=== PATIENT | female | born 1945 | race African-American/Black ===

== ENCOUNTER 2018-05-28 06:55 | Emergency (ER) | payer MEDICARE, SELFPAY ==
[2018-05-28 09:09] LABS: Bilirubin Small (Negative); Blood, Urine Negative (Negative); Clarity CLEAR (Clear); Glucose, Urine (Dipstick) Negative (Negative); Leukocyte Small (Negative); Nitrite Negative (Negative); Protein, Urine (Dipstick) Negative (Neg-Trace); Specific Gravity, Urine 1.029 (1.002-1.036)
[2018-05-28 09:11] LABS: Bacteria/HPF None Seen HPF (None Seen); Hyaline Casts/LPF 0-3 HYALINE CAST LPF (0-3 Hyaline); Pathc Cast-AUWi Flag 0.43 (0-2.49); RBC/HPF 0-3 HPF (0-3); WBC/HPF 0-3 HPF (0-3)
== END 2018-05-28 10:01 | disposition home or self-care (01) ==
LOC: ERS 06:55
DX: S39.012A Strain of muscle, fascia and tendon of lower back, initial encounter (principal); M54.41 Lumbago with sciatica, right side; E11.9 Type 2 diabetes mellitus without complications; I10 Essential (primary) hypertension; F17.210 Nicotine dependence, cigarettes, uncomplicated; E03.9 Hypothyroidism, unspecified; Z79.84 Long term (current) use of oral hypoglycemic drugs; Z79.899 Other long term (current) drug therapy; W19.XXXA Unspecified fall, initial encounter
CPT/HCPCS: 81003; 81015; 87086; 99283

== ENCOUNTER 2018-06-28 08:52 | Inpatient (IN) | payer MEDICARE, SELFPAY ==
[2018-06-28 10:23] LABS: ALT (SGPT) 27 U/L (8-55); AST (SGOT) 16 U/L (5-34); Alkaline Phosphatase 150 U/L (40-150); Anion Gap 18 mmol/L (10-20); BUN (Urea Nitrogen) 37 mg/dL (9.8-20.1); Bilirubin, Total 0.4 mg/dL (0.2-1.2); CK (CPK) 41 U/L (29-168); Calc. Creatinine Clearance 0 mL/min (70-130); Calcium 10.5 mg/dL (7.8-10.44); Carbon Dioxide 25 mmol/L (23-31); Chloride 101 mmol/L (98-107); Estimated GFR-MDRD 69; Globulin 3.5 g/dL (2.4-3.5); Glucose 105 mg/dL (83-110); Lipase 6 U/L (8-78); Potassium 3.3 mmol/L (3.5-5.1); Protein, Total 7.5 g/dL (6.0-8.3); Sodium 141 mmol/L (136-145)
[2018-06-28 10:27] LABS: CKMB 0.6 ng/mL (0-6.6); Troponin I Less than 0.010 ng/mL (< 0.028)
[2018-06-28 10:40] LABS: Hemoglobin 12.4 g/dL (12.0-16.0); Mean Corpuscular HGB CONC 33.3 g/dL (32.0-36.0); Mean Corpuscular Hemoglobin 24.8 pg (27.0-31.0); Mean Corpuscular Volume 74.4 fL (78.0-98.0); Mean Platelet Volume 6.7 fL (7.4-10.4); Platelet Count 617 thou/uL (130-400); RBC Distribution Width 14.3 % (11.5-14.5); Red Blood Cell (RBC) Count 4.99 mill/uL (4.20-5.40)
--- NOTE | 2018-06-28 10:46 | RAD ---
SINGLE VIEW OF THE CHEST: Comparison: None History: Low back pain that radiates to the shoulder blades. FINDINGS: Single view of the chest shows a normal sized cardiomediastinal silhouette. There is fullness in the right perihilar region which may represent an infiltrate. No pleural effusion is seen. IMPRESSION: Right perihilar infiltrate. POS: H
--- NOTE | 2018-06-28 10:47 | RAD ---
THREE VIEWS THORACIC SPINE: Comparison: None. History: Low back pain that radiates to shoulder blades. FINDINGS: There is a wedge compression deformity of a midthoracic vertebral body that likely represents the T7 vertebral body. This demonstrates approximately 50% height loss. This is likely chronic. No subluxati on is seen. No significant degenerative changes are present. IMPRESSION: Chronic wedge compression deformity of a midthoracic vertebral body. POS: MICHELLE
[2018-06-28 10:51] LABS: Band 5 % (5-11); Eosinophils 3 % (0-10); Lymphocytes 12 % (21-51); MDiff Complete? YES; Microcytosis SLIGHT = 6-15 cells (100X) (0-5/hpf); Monocytes 5 % (0-10); Myelocyte 1 % (0-0); Neutrophil 73 % (42-75); Nucleated RBC 1 % (0); PLT Morphology Comment Appears Increased; Polychromasia SLIGHT = 2-3 cells (100X) (0-2/hpf); Reactive Lymphocytes 1 % (0-10)
[2018-06-28] MEDS ORDERED: Sodium Chloride 0.9% 1,000 ML IV SCH (11:00)
[2018-06-28] MEDS ORDERED: Morphine 2 MG/ML SYRINGE ONE ×2 (11:32→11:33)
[2018-06-28] MEDS ORDERED: ISOVUE-370 76%-LOCM 1 ML ONE (12:02)
--- NOTE | 2018-06-28 12:16 | CT ---
CT PULMONARY ANGIOGRAM WITH IV CONTRAST AND 3D POSTPROCESSING: Date: 06/28/18 HISTORY: Chest pain. FINDINGS: There is pulmonary arterial vasculature without filling defects to suggest pulmonary embolism. The th oracic aorta is well opacified without aneurysm or dissection. There is a right suprahilar upper lobe lung mass extending into the right hilum and right paratracheal mediastinum measuring 6.5 cm (transv erse) x 4.5 cm (AP) x 5.7 cm (CC). This causes encasement of the right upper lobe pulmonary arteries and also probable extension into the posterior aspect of the superior vena cava. No pleural or pericardial effusions are seen. Vascular calcifications are present. There are emphysem atous changes in the lung james bilaterally. There are satellite lesions in the right upper lobe cheryl suring up to 1.0 cm. Upper abdominal tomograms demonstrate bilateral adrenal masses and a right renal cyst. There are destructive lesions in the L1 vertebral body. There is heterogeneity and compression of the vertebral body of T7 vertebral body, also suspicious for metastasis. A destructive lesion is seen in the left transverse process of C7. IMPRESSION: Right lung malignancy with metastatic disease involving the right lung, hilum, mediastinum, both adre nal glands, and bones. POS: DWAYNE
[2018-06-28 13:15] LABS: Bilirubin Negative (Negative); Blood, Urine Negative (Negative); Clarity CLEAR (Clear); Glucose, Urine (Dipstick) Negative (Negative); Leukocyte Trace (Negative); Nitrite Negative (Negative); Protein, Urine (Dipstick) Negative (Neg-Trace); Specific Gravity, Urine 1.041 (1.002-1.036); pH, Urine 5.5 (5.0-9.0)
[2018-06-28 13:18] LABS: Bacteria/HPF None Seen HPF (None Seen); Hyaline Casts/LPF 4-6 HYALINE CAST LPF (0-3 Hyaline); Pathc Cast-AUWi Flag 0.87 (0-2.49); WBC/HPF 0-3 HPF (0-3)
[2018-06-28 14:40] VITALS: BMI 25.6
[2018-06-28] MEDS ORDERED: Benzonatate 100 MG CAP PO PRN (16:42)
[2018-06-28] MEDS ORDERED: Ondansetron ODT 4 MG TAB PO PRN (16:42)
[2018-06-28] MEDS ORDERED: cloNIDine 0.1 MG TAB PO PRN (16:42)
[2018-06-28] MEDS ORDERED: Ondansetron PF 4 MG/2 ML Vial IVP PRN (16:42)
[2018-06-28] MEDS ORDERED: Cyclobenzaprine 10 MG TAB PO PRN (16:42)
[2018-06-28] MEDS ORDERED: hydrALAZINE 20 MG/ML VIAL SLOW IVP PRN (16:42)
[2018-06-28] MEDS ORDERED: Dextrose 5% in Water 1,000 ML IV PRN (16:58)
[2018-06-28] MEDS ORDERED: Dextrose 50% Abboject 50 ML SYRINGE SLOW IVP PRN (16:58)
[2018-06-28] MEDS ORDERED: HumaLOG 300 UNITS/3 ML VIAL SC PRN ×2 (16:58)
[2018-06-28] MEDS: Sodium Chloride 0.9% 1,000 ML IV SCH (17:46)
[2018-06-28] MEDS: predniSONE 20 MG TAB PO SCH (17:47)
[2018-06-28] MEDS: metFORMIN 500 MG TAB PO SCH (17:47)
[2018-06-28] MEDS: Atenolol 50 MG TAB PO SCH (20:06)
[2018-06-28] MEDS: cloNIDine 0.1 MG TAB PO SCH (20:07)
[2018-06-28] MEDS: Famotidine 20 MG TAB PO SCH (20:08)
[2018-06-28] MEDS: Lisinopril/Hydrochlorothiazide 20/25 mg Tablet PO SCH (20:08)
[2018-06-28] MEDS: traMADol HCl 50 MG TAB PO PRN (20:13)
--- NOTE | 2018-06-29 00:11 | HP ---
DATE OF ADMISSION: 06/28/2018 PRIMARY CARE PROVIDER: Dr. Luna Lorenz. CHIEF COMPLAINT: Back pain. HISTORY OF PRESENT ILLNESS: This is a 72-year-old -[place] female who presents to [facility] complaining of upper and mid back pain over the last 4-6 weeks. The patient has noted increased pain with rotation of her torso and when walking to the bathroom. The patient st ates she was evaluated in the emergency room approximately 4 weeks prior to this evaluation and given muscle relaxants as well as pain control with Ultram. The patient also notes associated mild cough without hemoptysis and weight loss up to 20 pounds in the last month. The patient denied any specifi c fever, chills, exposure history. The patient denied any recent trauma or fall. The patient juno marquez rated the pain of 10 out of 10 in the emergency department receiving morphine sulfate 4 mg x1 dos e in addition to intravenous normal saline. The patient underwent CT angiogram of the chest showing evidence of a right suprahilar upper lobe lung mass concerning for malignancy. The patient was also noted with suspicion for metastatic process on the T7 vertebral body as well as the left transverse p rocess of C7. The patient was referred to the medical floor for further evaluation. PAST MEDICAL HISTORY: 1. Tobacco abuse. 2. Diabetes mellitus type 2 on oral hypoglycemics. 3. Hypothyroidism. 4. Hypertension. PAST SURGICAL HISTORY: Reviewed and negative. CURRENT MEDICATIONS: 1. Atenolol 50 mg p.o. b.i.d. 2. Clonidine 0.1 mg p.o. b.i.d. 3. Flexeril 10 mg p.o. q.6 hours p.r.n. 4. Levothyroxine 75 mcg p.o. daily. 5. Lisinopril/hydrochlorothiazide 20/25 mg 1 tab p.o. b.i.d. 6. Metformin 1000 mg p.o. b.i.d. 7. Prednisone 20 mg p.o. b.i.d. 8. Tramadol 100 mg p.o. every 6 hours p.r.n. pain. ALLERGIES: ASPIRIN. FAMILY HISTORY: Positive for hypertension. SOCIAL HISTORY: Resides in [place], [place]. Retired. Smokes up to a pack of cigarettes daily greater than 10 years. No alcohol or illicit drug use. REVIEW OF SYSTEMS: The following complete review of systems was negative, unless otherwise mentioned in the HPI or below: Constitutional: Weight loss or gain, ability to conduct usual activities. Skin: Rash, itching. Eyes: Double vision, pain. ENT/Mouth: Nose bleeding, neck stiffness, pain, tenderness. Cardiovascular: Palpitations, dyspnea on exertion, orthopnea. Respiratory: Shortness of breath, wheezing, cough, hemoptysis, fever or night sweats. Gastrointestinal: Poor appetite, abdominal pain, heartburn, nausea, vomiting, constipation, or diarr hea. Genitourinary: Urgency, frequency, dysuria, nocturia. Musculoskeletal: Pain, swelling. Neurologic/Psychiatric: Anxiety, depression. Allergy/Immunologic: Skin rash, bleeding tendency. Otherwise negative except as stated per HPI. PHYSICAL EXAMINATION: VITAL SIGNS: On admission, blood pressure 159/85, pulse 74, respiratory rate 16, temperature 98 degr ees Fahrenheit, O2 saturation 95% on room air. GENERAL APPEARANCE: This is a 72-year-old -[place] female, alert and oriented x3, responsive , in no acute distress. HEENT: Pupils are equal, round, and reactive to light and accommodation. Extraocular muscles are in tact. No scleral icterus, no conjunctival injection. Nares patent. OP is clear. Teeth in fair rep air. NECK: Supple, no cervical adenopathy, no thyromegaly, no carotid bruits, no JVD appreciated. Cervic al spine with full active and passive range of motion. No meningeal signs noted. CHEST: Lungs are clear to auscultation bilaterally. CARDIOVASCULAR: S1 and S2, without noted murmur, rub or gallop. ABDOMEN: Rounded, soft, nontender, nondistended. Bowel sounds are positive in all four quadrants. There is no hepatosplenomegaly, no abdominal bruits, no rebound or guarding noted. EXTREMITIES: Warm and dry with fair turgor. No clubbing, cyanosis or asymmetric edema appreciated. Pulses palpable distally at the dorsalis pedis, posterior tibial and popliteal arteries bilaterally. Capillary refill less than 2 seconds. NEUROLOGIC: Cranial nerves II-XII are grossly intact. No focal or lateralizing signs appreciated. PERTINENT LABORATORY DATA AND X-RAY FINDINGS: Sodium 141, potassium 3.3, chloride 101, CO2 of 25, BU N 37, creatinine 0.96, estimated GFR 69, glucose 105, calcium 10.5. LFTs within normal limits. Tota l CK of 41. BNP 58, albumin 4.0, lipase 6. CBC showed a white blood cell count of 6.0, hemoglobin 1 2, hematocrit 37, MCV 74, platelet count 617. D-dimer 1.29. Urinalysis shows specific gravity 1.041 , trace leukocyte esterase. Portable chest x-ray dated 06/28/2018 showed a right perihilar infiltrat e. Thoracic spine radiographs dated 06/28/2018 showed chronic wedge depression deformity of the mid thoracic vertebral body at T7. CT angiogram of the chest dated 06/28/2018 showed right lung mass con cerning for malignancy with metastatic process involving the mediastinum, bilateral adrenal glands, T 7 vertebral body and left transverse process of C7. ASSESSMENT AND PLAN: 1. Right suprahilar lung mass. The patient will be admitted to the medical floor. Suspect malignan t process given metastatic process involving thoracic and cervical vertebra as well as likely adrenal glands. We will consult Pulmonology Service regarding potential bronchoscopy with biopsy. We will consult Medical and Oncology Service in the next 24-48 hours pending biopsy. 2. Leukocytosis with thrombocytosis. Suspect secondarily to prednisone use or reactive due to right lung mass. We will continue to monitor serial CBC and repeat level in the a.m. 3. Tobacco abuse. We will offer smoking cessation resources. Consider transdermal nicotine replace ment. 4. Hypertension. Resume home antihypertensive regimen and monitor clinical response. 5. Hypothyroidism. Continue levothyroxine 75 mcg p.o. daily. 6. Diabetes mellitus type 2. Continue metformin 1000 mg p.o. b.i.d. Insulin sliding scale for refl exive coverage. Accu-Cheks before meals and at bedtime. ADA diet. 7. Prophylaxis. Sequential compression devices while in bed. Pepcid 20 mg p.o. b.i.d. 8. Code status is FULL. Surrogate medical decision maker is patient's son.
[2018-06-29] MEDS: Sodium Chloride 0.9% 1,000 ML IV SCH ×2 (04:00→17:49)
[2018-06-29 05:17] LABS: Band 4 % (5-11); Eosinophils 1 % (0-10); Hemoglobin 10.6 g/dL (12.0-16.0); Lymphocytes 9 % (21-51); MDiff Complete? YES; Mean Corpuscular HGB CONC 32.2 g/dL (32.0-36.0); Mean Corpuscular Volume 74.5 fL (78.0-98.0); Mean Platelet Volume 6.8 fL (7.4-10.4); Monocytes 4 % (0-10); Myelocyte 1 % (0-0); Neutrophil 81 % (42-75); PLT Morphology Comment Appears Increased; Platelet Count 562 thou/uL (130-400); RBC Distribution Width 14.2 % (11.5-14.5); Target Cells SLIGHT = 2-5 cells (100X) (0-1/hpf); White Blood Cell (WBC) Count 12.9 thou/uL (4.8-10.8)
[2018-06-29 05:22] LABS: Anion Gap 13 mmol/L (10-20); BUN (Urea Nitrogen) 20 mg/dL (9.8-20.1); Calc. Creatinine Clearance 85 mL/min (70-130); Calcium 9.6 mg/dL (7.8-10.44); Carbon Dioxide 25 mmol/L (23-31); Chloride 103 mmol/L (98-107); Estimated GFR-MDRD Greater than 90; Glucose 124 mg/dL (83-110); Potassium 3.3 mmol/L (3.5-5.1); Sodium 138 mmol/L (136-145)
[2018-06-29] MEDS: Levothyroxine Sodium 75 MCG TAB PO SCH (05:25)
[2018-06-29] MEDS ORDERED: fentaNYL 50 mcg/hour Patch TD SCH (06:30)
[2018-06-29] MEDS: Famotidine 20 MG TAB PO SCH ×2 (08:30→20:23)
[2018-06-29] MEDS: Lisinopril/Hydrochlorothiazide 20/25 mg Tablet PO SCH ×2 (08:30→20:23)
[2018-06-29] MEDS: Atenolol 50 MG TAB PO SCH ×2 (08:30→20:23)
[2018-06-29] MEDS: metFORMIN 500 MG TAB PO SCH ×2 (08:31→16:18)
[2018-06-29] MEDS: cloNIDine 0.1 MG TAB PO SCH ×2 (08:31→20:22)
[2018-06-29] MEDS: predniSONE 20 MG TAB PO SCH ×2 (08:31→16:19)
--- NOTE | 2018-06-29 11:47 | CON ---
DATE OF CONSULTATION: 06/29/2018 HISTORY: Ms. Andre is a 72-year-old female who has been having severe back pain for over a month. She presented to the emergency room and was subsequently admitted. She has also lost 20 pounds. PAST MEDICAL HISTORY: Remarkable for diabetes, hypothyroidism, hypertension. SOCIAL HISTORY: She is a smoker. She is nondrinker, nondrug user. MEDICATIONS: Prior to admission, she was on atenolol, Catapres, Flexeril, Synthroid, lisinopril, hydrochlorothiazide, metformin, prednisone and tramadol. ALLERGIES: She reports an ASPIRIN allergy. FAMILY HISTORY: She has family history of hypertension. REVIEW OF SYSTEMS: Ten point review of systems completed, otherwise negative. Her main complaint is pain. She denies shortness of breath. PHYSICAL EXAMINATION: GENERAL: She is cachectic appearing. VITAL SIGNS: She is afebrile, heart rate 75, respiratory rate 20, oximetry is 93 on room air. Blood pressure 128/86. HEENT: Pupils are equal. Sclerae is anicteric, I do not palpate any cervical or supraclavicular lymphadenopathy. NECK: supple LUNGS: Clear and distant. HEART: Regular rhythm, no S3, no murmur. ABDOMEN: Soft and nontender. No masses. EXTREMITIES: Without clubbing, cyanosis, or edema. LABORATORY DATA: White count 12.9, hemoglobin 10.6, platelets 562. Sodium 138, potassium 3.3, chloride 103, bicarbonate 25, BUN 20, creatinine 0.69. Urinalysis 4-6 red cells, 0-[address] shows a right suprahilar mass. She has multiple bone mets seen on her CT as well. IMPRESSION: Metastatic bronchogenic carcinoma. The question becomes whether or not this is small cell or non-small cell. We discussed bronchoscopy. The risks of bleeding, infection, lung collapse and least likely . Reviewing CT, radiographs are suggestive of right main stem bronchus mucosal abnormalities, so we will consider bronchoscopy. She has agreed. We will place her on the schedule for tomorrow morning. I have adjusted her pain meds. She is having still very significant pain. Hopefully, a fentanyl patch will help control this. This is a 50-minute consult, with greater than 50% of the time was spent on unit coordinating care. BAILEY
[2018-06-29] MEDS: traMADol HCl 50 MG TAB PO PRN (20:32)
[2018-06-30] MEDS: Levothyroxine Sodium 75 MCG TAB PO SCH ×2 (05:15→10:17)
[2018-06-30] MEDS: Atenolol 50 MG TAB PO SCH ×2 (05:39→21:12)
[2018-06-30] MEDS: Morphine 4 MG/ML VIAL SLOW IVP PRN (05:42)
[2018-06-30] MEDS ORDERED: Lidocaine 1% (PF) 30 ML VIAL ONE (07:10)
[2018-06-30] MEDS ORDERED: Morphine 4 MG/ML VIAL ONE (07:22)
[2018-06-30] MEDS ORDERED: Fentanyl 100 MCG/2 ML VIAL ONE (08:00)
[2018-06-30] MEDS ORDERED: Midazolam HCl 2 mg/2 ml Vial ONE (08:00)
[2018-06-30] MEDS ORDERED: Benzocaine 20% Spray 60 ML CAN ONE (08:58)
[2018-06-30] MEDS: cloNIDine 0.1 MG TAB PO SCH ×2 (10:16→21:11)
[2018-06-30] MEDS: Lisinopril/Hydrochlorothiazide 20/25 mg Tablet PO SCH ×2 (10:17→21:11)
[2018-06-30] MEDS: metFORMIN 500 MG TAB PO SCH ×2 (10:17→16:22)
[2018-06-30] MEDS: predniSONE 20 MG TAB PO SCH ×2 (10:18→16:22)
[2018-06-30] MEDS: Famotidine 20 MG TAB PO SCH ×2 (10:18→21:11)
[2018-06-30] MEDS: Sodium Chloride 0.9% 1,000 ML IV SCH ×2 (10:18→17:26)
--- NOTE | 2018-06-30 12:29 | PDOC.PN ---
- Subjective Encounter Start Date: 06/30/18 Encounter Start Time: 12:20 Subjective: f/u for RUL mass likely malignancy with apparent metastasis. s/p -: bronchoscopy 06/30/18 with pathology pending. Feels ok overall -: and less pain. - Objective Resuscitation Status: Resuscitation Status FULL:Full Resuscitation MAR Reviewed: Yes Vital Signs & Weight: Vital Signs (12 hours) Temp Pulse Resp BP BP BP Pulse Ox 06/30/18 11:40 99.6 F 76 16 154/89 H 92 L 06/30/18 10:17 73 131/73 06/30/18 10:16 131/73 06/30/18 09:20 74 16 96 06/30/18 09:00 97.7 F 80 20 131/73 95 06/30/18 05:39 75 152/96 H 06/30/18 04:00 98.3 F 73 20 152/96 H 92 L Weight Admit Weight 158 lb 9.6 oz Weight 158 lb 9.6 oz I&O: 06/29/18 06/30/18 07/01/18 06:59 06:59 06:59 Intake Total 1200 1200 Balance 1200 1200 Result Diagrams: 06/29/18 04:28 06/29/18 04:28 Additional Labs: Accuchecks 06/30/18 06/30/18 06/29/18 11:30 04:29 20:37 POC Glucose 132 H 111 H 143 H 06/29/18 16:53 POC Glucose 121 H Phys Exam - Physical Examination Constitutional: NAD HEENT: PERRLA, sclera anicteric, oral pharynx no lesions Neck: no nodes, no JVD, supple, full ROM Respiratory: no wheezing, no rales, no rhonchi, clear to auscultation bilateral S1, S2 Cardiovascular: RRR, no significant murmur, no rub, gallop Gastrointestinal: soft, non-tender, no distention, positive bowel sounds Musculoskeletal: no edema, pulses present Neurological: normal sensation, moves all 4 limbs Psychiatric: normal affect, A&O x 3 Skin: no rash, normal turgor, cap refill <2 seconds Dx/Plan (1) Mass of right lung Code(s): R91.8 - OTHER NONSPECIFIC ABNORMAL FINDING OF LUNG FIELD Status: Acute Comment: s/p bronchoscopy with biopsy and pathology pending, likely malignant process, Medical Oncology consult after biopsy results (2) Metastasis to bone Code(s): C79.51 - SECONDARY MALIGNANT NEOPLASM OF BONE Status: Acute Comment : See #1 for mgmt (3) Tobacco abuse Code(s): Z72.0 - TOBACCO USE Status: Chronic Comment: Tobacco cessation resources (4) Leukocytosis Code(s): D72.829 - ELEVATED WHITE BLOOD CELL COUNT, UNSPECIFIED Status: Acute Comment: Likely multifactorial given Prednisone therapy and reactive process to likely malignancy (5) HTN (hypertension) Code(s): I10 - ESSENTIAL (PRIMARY) HYPERTENSION Status: Chronic Qualifiers: Hypertension type: essential hypertension Qualified Code(s): I10 - Essential (primary) hypertension Comment: Resume home BP regimen, monitor serially (6) Hypothyroidism Code(s): E03.9 - HYPOTHYROIDISM, UNSPECIFIED Status: Chronic Comment: Continue Levothyroxine (7) Diabetes mellitus type II, controlled Code(s): E11.9 - TYPE 2 DIABETES MELLITUS WITHOUT COMPLICATIONS Status: Chronic Comment: ISS, accuchecks, ADA - Plan plan discussed w/ family, hospice social worker, out of bed/ambulate, DVT proph w/SCDs Stable currently -: Await pathology dx from lung bx -: Pulmonary supportive mgmt -: Tobacco cessation resources -: Continue IVF's another 24h * .
--- NOTE | 2018-06-30 16:40 | OP ---
PROCEDURE: Consent forms were signed. The patient was identified. The patient was in the endoscopy suite. She was given 2 mg of Versed, 25 mcg of fentanyl. Bronchoscope was passed through her right nares down to her vocal cords. Vocal cords were normal. She had a very long epiglottis. Trachea w as normal to main darshan. The main darshan was wide. There was a lesion originating above the right upper lobe bronchus that was partially obstructing the right main stem bronchus. It was extremely fr iable. Epinephrine for a total of 4 mL was applied to this ([id number]). This was then brushed, washed and biopsied multiple times. Specimens were sent for cytology. There is no suggestion that any of this is infection mediated so nothing will be cultured. IMPRESSION: Bronchogenic carcinoma, stage 4. PLAN: Await pathology to determine whether this is small cell or nonsmall cell. My guess is that this will be nonsmall cell carcinoma.
[2018-07-01] MEDS: traMADol HCl 50 MG TAB PO PRN ×2 (02:18→14:30)
[2018-07-01] MEDS: Levothyroxine Sodium 75 MCG TAB PO SCH (05:12)
[2018-07-01] MEDS: Sodium Chloride 0.9% 1,000 ML IV SCH ×3 (05:14→15:35)
[2018-07-01] MEDS: Morphine 4 MG/ML VIAL SLOW IVP PRN (05:20)
[2018-07-01] MEDS: Lisinopril/Hydrochlorothiazide 20/25 mg Tablet PO SCH ×2 (08:09→20:30)
[2018-07-01] MEDS: Atenolol 50 MG TAB PO SCH ×2 (08:09→20:31)
[2018-07-01] MEDS: Famotidine 20 MG TAB PO SCH ×2 (08:10→20:30)
[2018-07-01] MEDS: metFORMIN 500 MG TAB PO SCH ×2 (08:10→17:26)
[2018-07-01] MEDS: cloNIDine 0.1 MG TAB PO SCH ×2 (08:10→20:30)
[2018-07-01] MEDS: predniSONE 20 MG TAB PO SCH ×2 (08:10→17:26)
--- NOTE | 2018-07-01 09:25 | PRG ---
DATE OF SERVICE: 07/01/2018 SUBJECTIVE: Ms. Andre is still having some breakthrough pain. OBJECTIVE: VITAL SIGNS: She is afebrile, heart rate is 67, blood pressure 171/92. Oximetry is 94% on room air. LUNGS: Clear. She is not bronchospastic after bronchoscopy yesterday. HEART: Regular rhythm. ABDOMEN: Soft. LABORATORY DATA: No new lab other than blood glucoses. In my opinion, there is no reason to continue with the frequent Accu-Cheks, as her diabetes is unlike ly to change her morbidity or mortality. Hopefully, we will pathology tomorrow. She is clinically stable at this point in time.
[2018-07-01] MEDS ORDERED: fentaNYL 75 mcg/hour Patch TD SCH (10:00)
--- NOTE | 2018-07-01 15:42 | PDOC.PN ---
- Subjective Encounter Start Date: 07/01/18 Encounter Start Time: 15:35 Subjective: f/u for likely metastatic lung carcinoma pending confirmation from -: pathology. No new complaints. Pain well controlled. - Objective Resuscitation Status: Resuscitation Status FULL:Full Resuscitation MAR Reviewed: Yes Vital Signs & Weight: Vital Signs (12 hours) Temp Pulse Resp BP BP BP Pulse Ox 07/01/18 11:33 98.1 F 81 16 126/82 94 L 07/01/18 08:10 171/92 H 07/01/18 08:09 67 171/92 H 07/01/18 08:01 94 L 07/01/18 07:31 98.0 F 67 16 171/92 H 94 L 07/01/18 05:21 98.4 F 68 18 163/96 H 94 L Weight Admit Weight 158 lb 9.6 oz Weight 158 lb 9.6 oz I&O: 06/30/18 07/01/18 07/02/18 06:59 06:59 06:59 Intake Total 1200 1175 Balance 1200 1175 Result Diagrams: 06/29/18 04:28 06/29/18 04:28 Additional Labs: Accuchecks 07/01/18 07/01/18 06/30/18 11:26 04:39 19:37 POC Glucose 114 H 120 H 141 H 06/30/18 16:21 POC Glucose 138 H Phys Exam - Physical Examination Constitutional: NAD HEENT: PERRLA, sclera anicteric, oral pharynx no lesions Neck: no nodes, no JVD, supple, full ROM Respiratory: no wheezing, no rales, no rhonchi, clear to auscultation bilateral S1, S2 Cardiovascular: RRR, no significant murmur, no rub, gallop Gastrointestinal: soft, non-tender, no distention, positive bowel sounds Musculoskeletal: no edema, pulses present Neurological: normal sensation, moves all 4 limbs Psychiatric: normal affect, A&O x 3 Skin: no rash, normal turgor, cap refill <2 seconds Dx/Plan (1) Mass of right lung Code(s): R91.8 - OTHER NONSPECIFIC ABNORMAL FINDING OF LUNG FIELD Status: Acute Comment: s/p bronchoscopy with biopsy and pathology pending, likely malignant process, Medical Oncology consult after biopsy results (2) Metastasis to bone Code(s): C79.51 - SECONDARY MALIGNANT NEOPLASM OF BONE Status: Acute Comment : See #1 for mgmt (3) Tobacco abuse Code(s): Z72.0 - TOBACCO USE Status: Chronic Comment: Tobacco cessation resources (4) Leukocytosis Code(s): D72.829 - ELEVATED WHITE BLOOD CELL COUNT, UNSPECIFIED Status: Acute Comment: Likely multifactorial given Prednisone therapy and reactive process to likely malignancy (5) HTN (hypertension) Code(s): I10 - ESSENTIAL (PRIMARY) HYPERTENSION Status: Chronic Qualifiers: Hypertension type: essential hypertension Qualified Code(s): I10 - Essential (primary) hypertension Comment: Resume home BP regimen, monitor serially (6) Hypothyroidism Code(s): E03.9 - HYPOTHYROIDISM, UNSPECIFIED Status: Chronic Comment: Continue Levothyroxine (7) Diabetes mellitus type II, controlled Code(s): E11.9 - TYPE 2 DIABETES MELLITUS WITHOUT COMPLICATIONS Status: Chronic Comment: ISS, accuchecks, ADA - Plan plan discussed w/ family, PT/OT, director social, respiratory therapy, out of bed/ambulate, DVT proph w/SCDs Stable overall -: Continue Prednisone -: Continue Duonebs prn -: OOB/ambulate -: Await final pathology results from lung bx * .
[2018-07-02] MEDS: Sodium Chloride 0.9% 1,000 ML IV SCH ×2 (03:14→15:25)
[2018-07-02] MEDS: Levothyroxine Sodium 75 MCG TAB PO SCH (05:31)
[2018-07-02] MEDS: Lisinopril/Hydrochlorothiazide 20/25 mg Tablet PO SCH ×2 (08:56→20:48)
[2018-07-02] MEDS: Atenolol 50 MG TAB PO SCH ×2 (08:56→20:48)
[2018-07-02] MEDS: predniSONE 20 MG TAB PO SCH ×2 (08:56→16:31)
[2018-07-02] MEDS: Famotidine 20 MG TAB PO SCH ×2 (08:57→20:48)
[2018-07-02] MEDS: cloNIDine 0.1 MG TAB PO SCH ×2 (08:57→20:48)
[2018-07-02] MEDS: metFORMIN 500 MG TAB PO SCH ×2 (08:57→16:31)
--- NOTE | 2018-07-02 12:09 | PDOC.PN ---
- Subjective Encounter Start Date: 07/02/18 Encounter Start Time: 11:45 Subjective: f/u RUL mass with pathology showing Squamous Cell carcinoma. -: No new complaints. - Objective Resuscitation Status: Resuscitation Status FULL:Full Resuscitation MAR Reviewed: Yes Vital Signs & Weight: Vital Signs (12 hours) Temp Pulse Resp BP BP Pulse Ox 07/02/18 11:29 98.5 F 81 20 137/95 H 94 L 07/02/18 08:57 171/94 H 07/02/18 08:56 80 171/94 H 07/02/18 07:27 98.6 F 80 19 171/94 H 91 L Weight Admit Weight 158 lb 9.6 oz Weight 158 lb 9.6 oz I&O: 07/01/18 07/02/18 07/03/18 06:59 06:59 06:59 Intake Total 1175 1400 Balance 1175 1400 Result Diagrams: 06/29/18 04:28 06/29/18 04:28 Additional Labs: Accuchecks 07/02/18 07/01/18 07/01/18 04:26 19:49 16:52 POC Glucose 122 H 111 H 126 H 07/01/18 11:26 POC Glucose 114 H Phys Exam - Physical Examination Constitutional: NAD HEENT: PERRLA, sclera anicteric, oral pharynx no lesions Neck: no nodes, no JVD, supple, full ROM Respiratory: no wheezing, no rales, no rhonchi, clear to auscultation bilateral S1, S2 Cardiovascular: RRR, no significant murmur, no rub, gallop Gastrointestinal: soft, non-tender, no distention, positive bowel sounds Musculoskeletal: no edema, pulses present Neurological: normal sensation, moves all 4 limbs flat affect Psychiatric: A&O x 3 Skin: normal turgor, cap refill <2 seconds Dx/Plan (1) Mass of right lung Code(s): R91.8 - OTHER NONSPECIFIC ABNORMAL FINDING OF LUNG FIELD Status: Acute Comment: s/p bronchoscopy with pathology showing SCC, Medical Oncology consult today (2) Metastasis to bone Code(s): C79.51 - SECONDARY MALIGNANT NEOPLASM OF BONE Status: Acute Comment : See #1 for mgmt, Squamous Cell Carcinoma on pathology, Oncology consult pending (3) Tobacco abuse Code(s): Z72.0 - TOBACCO USE Status: Chronic Comment: Tobacco cessation resources (4) Leukocytosis Code(s): D72.829 - ELEVATED WHITE BLOOD CELL COUNT, UNSPECIFIED Status: Acute Comment: Likely multifactorial given Prednisone therapy and reactive process to likely malignancy (5) HTN (hypertension) Code(s): I10 - ESSENTIAL (PRIMARY) HYPERTENSION Status: Chronic Qualifiers: Hypertension type: essential hypertension Qualified Code(s): I10 - Essential (primary) hypertension Comment: Resume home BP regimen, monitor serially (6) Hypothyroidism Code(s): E03.9 - HYPOTHYROIDISM, UNSPECIFIED Status: Chronic Comment: Continue Levothyroxine (7) Diabetes mellitus type II, controlled Code(s): E11.9 - TYPE 2 DIABETES MELLITUS WITHOUT COMPLICATIONS Status: Chronic Comment: ISS, accuchecks, ADA - Plan plan discussed w/ family, clinical social worker, out of bed/ambulate Stable currently -: Start Nicotine TD 21mg daily -: Consult Medical Oncology service -: Continue pain control with Fentanyl patch -: Continue Prednisone * Discussed biopsy/pathology results with patient and [id number]
[2018-07-02] MEDS: Nicotine 21 MG PATCH TD SCH (12:37)
[2018-07-02] MEDS: traMADol HCl 50 MG TAB PO PRN (12:42)
--- NOTE | 2018-07-02 17:46 | PRG ---
DATE OF SERVICE: 07/02/2018 Tiny Andre had her pathology finalized today. She has squamous cell carcinoma. This is stage IV squamous cell carcinoma of the lung. She is to be seen by Oncology later today. She is having no post-bronchoscopy complications. Her pain seems to be reasonably well controlled on fentanyl patch. We will sign off. MTDD
--- NOTE | 2018-07-02 20:59 | CON ---
DATE OF CONSULTATION: 07/02/2018 REASON FOR CONSULTATION: Lung cancer. HISTORY OF PRESENT ILLNESS: Ms. Andre is a pleasant 72-year-old - [place] female with a [id number] history of smoking who presented to the emergency room with back pain. Workup revealed a right upper lobe mass with likely metastatic disease involving the hilum, mediastinum, adrenal glands and vertebral body. Dr. Hudson performed a bronchoscopy. 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 The patient continues to have back pain controlled with fentanyl patch. Denies any shortness of breath. Admits to about a 20-pound weight loss over the last several months. Patient admits to blurred vision and occasional headaches. No neuromuscular weakness. PAST MEDICAL HISTORY: 1. Diabetes. 2. Hypothyroidism. 3. Hypertension. 4. Tobacco use. PAST SURGICAL HISTORY: None. ALLERGIES: ASPIRIN. HOME MEDICATIONS: 1. Atenolol 50 mg b.i.d. 2. Catapres 0.1 mg b.i.d. 3. Flexeril p.r.n. 4. Levothyroxine 75 mcg daily. 5. Losartan/hydrochlorothiazide daily. 6. Metformin 1000 mg b.i.d. 7. Prednisone 20 mg b.i.d. 8. Tramadol p.r.n. FAMILY HISTORY: No malignancies. SOCIAL HISTORY: Retired, lives in [place]. Positive for tobacco use. No alcohol or illicit drug use. REVIEW OF SYSTEMS: Twelve-point review of systems is negative except for noted in HPI. PHYSICAL EXAMINATION: VITAL SIGNS: Temperature 98.5, pulse is 81, respiratory rate 20, BP is 137/95. She is 94% on 2 liters. GENERAL: Well-developed, well-nourished female in no acute distress. HEENT: Normocephalic, atraumatic. Pupils are equal and reactive to light. Poor dentition. NECK: Supple. CARDIOVASCULAR: Rate and rhythm. LUNGS: Clear throughout. ABDOMEN: Soft, nontender, bowel sounds are positive. EXTREMITIES: No clubbing, cyanosis or edema. SKIN: No rash. HEMATOLOGIC: No petechia or purpura. NEUROLOGIC: Nonfocal. PSYCHIATRIC: Patient is alert and oriented and appropriate. PERTINENT LABORATORY DATA AND IMAGING DATA: Current WBCs are 12.9, hemoglobin 10.6, hematocrit 32.8, platelet count is 562,000, 81% neutrophils, 4% bands, 9% lymphocytes. Sodium 138, potassium 3.3, chloride 103, CO2 is 25, BUN is 20, creatinine 0.69, calcium 9.6, total bilirubin is 0.4, AST 16, ALT is 27, alkaline phosphatase is 150, creatinine kinase is 41. Serum total protein 7.5, albumin 4, globulin 3.5, lipase 6. Urine is negative for bacteria. Radiology per HPI. ASSESSMENT: Metastatic squamous cell lung cancer, stage 4. DISCUSSION: The patient's tumor mutation panel has been set. She will need chemotherapy and a possible radiation. We will check an MRI for her brain to rule out any metastatic lesions. Patient needs financial assistance for treatment in the outpatient setting. Will consult Case management. Consult Palliative Care Team to discuss advance directives with the patient. Thank you for the consult. BAILEY
[2018-07-03] MEDS: traMADol HCl 50 MG TAB PO PRN (00:54)
[2018-07-03] MEDS: Sodium Chloride 0.9% 1,000 ML IV SCH ×2 (03:43→16:35)
[2018-07-03] MEDS: Levothyroxine Sodium 75 MCG TAB PO SCH (05:21)
[2018-07-03] MEDS: Lisinopril/Hydrochlorothiazide 20/25 mg Tablet PO SCH ×2 (09:11→21:04)
[2018-07-03] MEDS: Atenolol 50 MG TAB PO SCH ×2 (09:12→21:03)
[2018-07-03] MEDS: cloNIDine 0.1 MG TAB PO SCH ×2 (09:13→21:03)
[2018-07-03] MEDS: predniSONE 20 MG TAB PO SCH ×2 (09:13→16:32)
[2018-07-03] MEDS: Famotidine 20 MG TAB PO SCH ×2 (09:13→21:04)
[2018-07-03] MEDS: metFORMIN 500 MG TAB PO SCH ×2 (09:13→16:32)
[2018-07-03] MEDS: Nicotine 21 MG PATCH TD SCH ×2 (13:01→16:57)
--- NOTE | 2018-07-03 13:01 | PDOC.PN ---
- Subjective Encounter Start Date: 07/03/18 Encounter Start Time: 09:00 Pt seen for followup re: lung cancer. Denies chest pain, reports generalized weakness. - Objective Resuscitation Status: Resuscitation Status FULL:Full Resuscitation Vital Signs & Weight: Vital Signs (12 hours) Temp Pulse Resp BP BP BP Pulse Ox 07/03/18 11:22 98.1 F 85 16 137/86 90 L 07/03/18 09:13 130/86 07/03/18 09:12 84 07/03/18 09:11 84 130/84 07/03/18 08:00 91 L 07/03/18 07:37 98.6 F 84 16 130/86 91 L 07/03/18 04:30 98 F 79 16 149/100 H 91 L Weight Admit Weight 158 lb 9.6 oz Weight 158 lb 9.6 oz I&O: 07/02/18 07/03/18 07/04/18 06:59 06:59 05:59 Intake Total 1400 2525 Balance 1400 2525 Result Diagrams: 06/29/18 04:28 06/29/18 04:28 Additional Labs: Accuchecks 07/03/18 07/03/18 07/02/18 11:24 04:29 22:08 POC Glucose 126 H 125 H 143 H 07/02/18 16:28 POC Glucose 141 H Phys Exam - Physical Examination Constitutional: NAD HEENT: moist MMs Neck: supple Respiratory: clear to auscultation bilateral Cardiovascular: RRR Gastrointestinal: soft Neurological: moves all 4 limbs Psychiatric: normal affect Dx/Plan (1) Mass of right lung Code(s): R91.8 - OTHER NONSPECIFIC ABNORMAL FINDING OF LUNG FIELD Status: Acute Comment: SCC on path report. (2) HTN (hypertension) Code(s): I10 - ESSENTIAL (PRIMARY) HYPERTENSION Status: Chronic Qualifiers: Hypertension type: essential hypertension Qualified Code(s): I10 - Essential (primary) hypertension Comment: controlled (3) Hypothyroidism Code(s): E03.9 - HYPOTHYROIDISM, UNSPECIFIED Status: Chronic Comment: Continue Levothyroxine (4) Tobacco abuse Code(s): Z72.0 - TOBACCO USE Status: Chronic Comment: on nicotine patch - Plan * . Review of Systems - Review of Systems Constitutional: weakness Respiratory: negative: Cough, Shortness of Breath, SOB with Excertion, Pleuritic Pain, Wheezing Cardiovascular: negative: chest pain, palpitations, orthopnea, paroxysmal nocturnal dyspnea, edema, light headedness - Medications/Allergies Allergies/Adverse Reactions: Allergies Allergy/AdvReac Type Severity Reaction Status Date / Time aspirin AdvReac Verified 06/28/18 14:12 Medications: Current Medications Acetaminophen (Tylenol) 1,000 mg PO Q6H PRN PRN Reason: Mild Pain (1-3) Atenolol (Tenormin) 50 mg PO BID [facility] Last Admin: 07/03/18 09:12 Dose: 50 mg Benzonatate (Tessalon) 100 mg PO Q6H PRN PRN Reason: Cough Clonidine (Catapres) 0.1 mg PO Q4H PRN PRN Reason: SBP Greater Than 180 Clonidine (Catapres) 0.1 mg PO BID [facility] Last Admin: 07/03/18 09:13 Dose: 0.1 mg Dextrose/Water (Dextrose 50%) 25 gm SLOW IVP PRN PRN PRN Reason: Hypoglycemia Famotidine (Pepcid) 20 mg PO BID [facility] Last Admin: 07/03/18 09:13 Dose: 20 mg Fentanyl (Duragesic) 75 mcg TD Q3D [facility] Last Admin: 07/01/18 10:19 Dose: 75 mcg Glucagon (Glucagon) 1 mg IM PRN PRN PRN Reason: Hypoglycemia Lisinopril/HCTZ (Prinizide 20-25) 1 tab PO BID [facility] Last Admin: 07/03/18 09:11 Dose: 1 tab Hydralazine HCl (Apresoline) 10 mg SLOW IVP Q4H PRN PRN Reason: SBP > 180 and HR < 70 Sodium Chloride (Normal Saline 0.9%) 1,000 mls @ 75 mls/hr IV .[id number] [facility] Last Admin: 07/03/18 03:43 Dose: 1,000 mls Dextrose/Water (D5w) 1,000 mls @ 0 mls/hr IV .Q0M PRN PRN Reason: Hypoglycemia Insulin Human Lispro (Humalog) 0 units SC .MILD SLIDING SCALE PRN PRN Reason: Mild Correctional Scale Insulin Human Lispro (Humalog) 0 units SC .BEDTIME SLIDING SC PRN PRN Reason: Bedtime Correctional Scale Levothyroxine Sodium (Synthroid) 75 mcg PO 0600 [facility] Last Admin: 07/03/18 05:21 Dose: 75 mcg Metformin HCl (Glucophage) 1,000 mg PO BID-[facility] Last Admin: 07/03/18 09:13 Dose: 1,000 mg Morphine Sulfate (Morphine) 4 mg SLOW IVP Q2H PRN PRN Reason: Breakthrough Pain Last Admin: 07/01/18 05:20 Dose: 4 mg Nicotine (Nicoderm Patch) 21 mg TD 1300 [facility] Last Admin: 07/02/18 12:37 Dose: 21 mg Ondansetron HCl (Zofran Odt) 4 mg PO Q6H PRN PRN Reason: Nausea/Vomiting Ondansetron HCl (Zofran) 4 mg IVP Q6H PRN PRN Reason: Nausea/Vomiting Prednisone (Prednisone) 20 mg PO BID-[facility] Last Admin: 07/03/18 09:13 Dose: 20 mg Sodium Chloride (Flush - Normal Saline) 10 ml IVF Q12HR [facility] Last Admin: 07/03/18 09:14 Dose: 10 ml Sodium Chloride (Flush - Normal Saline) 10 ml IVF PRN PRN PRN Reason: Saline Flush Tramadol HCl (Ultram) 100 mg PO Q6HR PRN PRN Reason: for pain Last Admin: 07/03/18 00:54 Dose: 100 mg
[2018-07-03] MEDS: fentaNYL 75 mcg/hour Patch TD SCH (16:56)
--- NOTE | 2018-07-03 16:57 | MRI ---
PRE AND POSTCONTRAST ENHANCEMENT MRI IMAGES BRAIN: 07/03/18 HISTORY: Patient with lung cancer. Evaluate for intracranial pathology. Pre and postcontrast enhanced MRI images of the brain obtained. Images demonstrate no evidence of areas of diffusion restriction. No evidence of intracranial masses, hemorrhages, strokes or contusions seen. Ventricles are of normal size. No evidence of sub or epidur al hematoma seen. IMPRESSION: Unremarkable pre and postcontrast enhanced MRI images of the brain. POS: DWAYNE
[2018-07-03] MEDS: Acetaminophen 500 MG TAB PO PRN (21:04)
[2018-07-04] MEDS: Sodium Chloride 0.9% 1,000 ML IV SCH ×2 (03:21→17:07)
[2018-07-04] MEDS: Acetaminophen 500 MG TAB PO PRN (03:24)
[2018-07-04] MEDS: Levothyroxine Sodium 75 MCG TAB PO SCH (05:35)
[2018-07-04] MEDS ORDERED: Acetaminophen/Codeine 30-300mg Tablet PO PRN (07:08)
[2018-07-04] MEDS: Lidocaine 5% Patch TD SCH (08:38)
[2018-07-04] MEDS: Atenolol 50 MG TAB PO SCH ×2 (08:38→20:48)
[2018-07-04] MEDS: Lisinopril/Hydrochlorothiazide 20/25 mg Tablet PO SCH ×2 (08:38→20:52)
[2018-07-04] MEDS: metFORMIN 500 MG TAB PO SCH ×2 (08:38→17:00)
[2018-07-04] MEDS: cloNIDine 0.1 MG TAB PO SCH ×2 (08:38→20:49)
[2018-07-04] MEDS: predniSONE 20 MG TAB PO SCH ×2 (08:39→17:00)
[2018-07-04] MEDS: Famotidine 20 MG TAB PO SCH ×2 (08:39→20:48)
--- NOTE | 2018-07-04 09:53 | PDOC.PN ---
- Subjective Encounter Start Date: 07/04/18 Encounter Start Time: 07:00 Pt seen for followup re:lung mass. c/o back pain, no fevers or chills. - Objective Resuscitation Status: Resuscitation Status FULL:Full Resuscitation MAR Reviewed: Yes Vital Signs & Weight: Vital Signs (12 hours) Temp Pulse Resp BP BP Pulse Ox 07/04/18 08:38 90 158/95 H 07/04/18 07:47 99.5 F 90 18 158/75 H 92 L 07/04/18 05:18 92 L Weight Admit Weight 158 lb 9.6 oz Weight 158 lb 9.6 oz I&O: 07/03/18 07/04/18 07/05/18 07:59 06:59 06:59 Intake Total Balance Result Diagrams: 06/29/18 04:28 06/29/18 04:28 Additional Labs: Accuchecks 07/04/18 07/03/18 07/03/18 05:39 20:20 16:31 POC Glucose 115 H 150 H 144 H 07/03/18 11:24 POC Glucose 126 H Labs reviewed by me Phys Exam - Physical Examination Constitutional: NAD HEENT: moist MMs Neck: supple Respiratory: clear to auscultation bilateral Cardiovascular: RRR Gastrointestinal: soft Neurological: moves all 4 limbs Psychiatric: normal affect Dx/Plan (1) Mass of right lung Code(s): R91.8 - OTHER NONSPECIFIC ABNORMAL FINDING OF LUNG FIELD Status: Acute Comment: SCC on path report. Pt likley to be discharged once treatment plan in place. (2) HTN (hypertension) Code(s): I10 - ESSENTIAL (PRIMARY) HYPERTENSION Status: Chronic Qualifiers: Hypertension type: essential hypertension Qualified Code(s): I10 - Essential (primary) hypertension Comment: BP high today, ? due to pain, add lidocaine patch and T3. (3) Hypothyroidism Code(s): E03.9 - HYPOTHYROIDISM, UNSPECIFIED Status: Chronic Comment: on Levothyroxine (4) Tobacco abuse Code(s): Z72.0 - TOBACCO USE Status: Chronic Comment: continue nicotine patch - Plan * . Review of Systems - Review of Systems Cardiovascular: negative: chest pain, palpitations, orthopnea, paroxysmal nocturnal dyspnea, edema, light headedness Gastrointestinal: negative: Nausea, Vomiting, Abdominal Pain, Diarrhea, Constipation, Melena, Hematochezia Musculoskeletal: Back Pain - Medications/Allergies Allergies/Adverse Reactions: Allergies Allergy/AdvReac Type Severity Reaction Status Date / Time aspirin AdvReac Verified 06/28/18 14:12 Medications: Current Medications Acetaminophen (Tylenol) 1,000 mg PO Q6H PRN PRN Reason: Mild Pain (1-3) Last Admin: 07/04/18 03:24 Dose: 1,000 mg Acetaminophen/Codeine Phosphate (Tylenol #3) 2 tab PO Q6H PRN PRN Reason: Pain Acetaminophen/Codeine Phosphate (Tylenol #3) 1 tab PO Q6H PRN PRN Reason: Pain Atenolol (Tenormin) 50 mg PO BID [facility] Last Admin: 07/04/18 08:38 Dose: 50 mg Benzonatate (Tessalon) 100 mg PO Q6H PRN PRN Reason: Cough Clonidine (Catapres) 0.1 mg PO Q4H PRN PRN Reason: SBP Greater Than 180 Clonidine (Catapres) 0.1 mg PO BID [facility] Last Admin: 07/04/18 08:38 Dose: 0.1 mg Dextrose/Water (Dextrose 50%) 25 gm SLOW IVP PRN PRN PRN Reason: Hypoglycemia Famotidine (Pepcid) 20 mg PO BID [facility] Last Admin: 07/04/18 08:39 Dose: 20 mg Fentanyl (Duragesic) 75 mcg TD Q3D [facility] Last Admin: 07/03/18 16:56 Dose: 75 mcg Glucagon (Glucagon) 1 mg IM PRN PRN PRN Reason: Hypoglycemia Lisinopril/HCTZ (Prinizide 20-25) 1 tab PO BID [facility] Last Admin: 07/04/18 08:38 Dose: 1 tab Hydralazine HCl (Apresoline) 10 mg SLOW IVP Q4H PRN PRN Reason: SBP > 180 and HR < 70 Sodium Chloride (Normal Saline 0.9%) 1,000 mls @ 75 mls/hr IV .[id number] [facility] Last Admin: 07/04/18 03:21 Dose: 1,000 mls Dextrose/Water (D5w) 1,000 mls @ 0 mls/hr IV .Q0M PRN PRN Reason: Hypoglycemia Insulin Human Lispro (Humalog) 0 units SC .MILD SLIDING SCALE PRN PRN Reason: Mild Correctional Scale Insulin Human Lispro (Humalog) 0 units SC .BEDTIME SLIDING SC PRN PRN Reason: Bedtime Correctional Scale Levothyroxine Sodium (Synthroid) 75 mcg PO 0600 [facility] Last Admin: 07/04/18 05:35 Dose: 75 mcg Lidocaine (Lidoderm 5% Patch) 1 patch TD DAILY [facility] Last Admin: 07/04/18 08:38 Dose: 1 patch Metformin HCl (Glucophage) 1,000 mg PO BID-[facility] Last Admin: 07/04/18 08:38 Dose: 1,000 mg Miscellaneous Medication (Lidocaine Patch Removal) 1 each TOP 2100 [facility] Morphine Sulfate (Morphine) 4 mg SLOW IVP Q2H PRN PRN Reason: Breakthrough Pain Last Admin: 07/01/18 05:20 Dose: 4 mg Nicotine (Nicoderm Patch) 21 mg TD 1700 [facility] Last Admin: 07/03/18 16:57 Dose: 21 mg Ondansetron HCl (Zofran Odt) 4 mg PO Q6H PRN PRN Reason: Nausea/Vomiting Ondansetron HCl (Zofran) 4 mg IVP Q6H PRN PRN Reason: Nausea/Vomiting Prednisone (Prednisone) 20 mg PO BID-[facility] Last Admin: 07/04/18 08:39 Dose: 20 mg Sodium Chloride (Flush - Normal Saline) 10 ml IVF Q12HR [facility] Last Admin: 07/04/18 08:39 Dose: 10 ml Sodium Chloride (Flush - Normal Saline) 10 ml IVF PRN PRN PRN Reason: Saline Flush Tramadol HCl (Ultram) 100 mg PO Q6HR PRN PRN Reason: for pain Last Admin: 07/03/18 00:54 Dose: 100 mg
[2018-07-04] MEDS: Lidocaine Patch Removal 1 EACH TOP SCH (16:21)
[2018-07-04] MEDS: Acetaminophen/Codeine 30-300mg Tablet PO PRN (17:00)
[2018-07-04] MEDS: Nicotine 21 MG PATCH TD SCH (17:01)
[2018-07-05] MEDS: Acetaminophen/Codeine 30-300mg Tablet PO PRN ×3 (02:14→15:37)
[2018-07-05] MEDS: Levothyroxine Sodium 75 MCG TAB PO SCH (05:25)
[2018-07-05] MEDS: Sodium Chloride 0.9% 1,000 ML IV SCH ×2 (05:27→23:54)
[2018-07-05] MEDS: Lisinopril/Hydrochlorothiazide 20/25 mg Tablet PO SCH ×2 (08:22→21:08)
[2018-07-05] MEDS: metFORMIN 500 MG TAB PO SCH ×2 (08:23→15:39)
[2018-07-05] MEDS: predniSONE 20 MG TAB PO SCH ×2 (08:23→15:39)
[2018-07-05] MEDS: cloNIDine 0.1 MG TAB PO SCH (08:23)
[2018-07-05] MEDS: Famotidine 20 MG TAB PO SCH ×2 (08:23→21:08)
[2018-07-05] MEDS: Atenolol 50 MG TAB PO SCH ×2 (08:23→21:07)
[2018-07-05 10:18] LABS: Hemoglobin 11.8 g/dL (12.0-16.0); Mean Corpuscular HGB CONC 33.3 g/dL (32.0-36.0); Mean Corpuscular Hemoglobin 24.5 pg (27.0-31.0); Mean Corpuscular Volume 73.6 fL (78.0-98.0); Mean Platelet Volume 6.6 fL (7.4-10.4); Platelet Count 483 thou/uL (130-400); RBC Distribution Width 14.7 % (11.5-14.5); Red Blood Cell (RBC) Count 4.83 mill/uL (4.20-5.40); White Blood Cell (WBC) Count 25.2 thou/uL (4.8-10.8)
[2018-07-05 10:42] LABS: Anion Gap 10 mmol/L (10-20); BUN (Urea Nitrogen) 10 mg/dL (9.8-20.1); Calc. Creatinine Clearance 99 mL/min (70-130); Calcium 10.1 mg/dL (7.8-10.44); Carbon Dioxide 30 mmol/L (23-31); Chloride 96 mmol/L (98-107); Estimated GFR-MDRD Greater than 90; Glucose 105 mg/dL (83-110); Potassium 3.2 mmol/L (3.5-5.1); Sodium 133 mmol/L (136-145)
[2018-07-05 11:18] LABS: Band 4 % (5-11); Eosinophils 2 % (0-10); Hypochromia SLIGHT = 6-15 cells (100X) (0-5/hpf); Lymphocytes 9 % (21-51); MDiff Complete? YES; Microcytosis SLIGHT = 6-15 cells (100X) (0-5/hpf); Monocytes 5 % (0-10); Neutrophil 80 % (42-75); PLT Morphology Comment Appears Increased; Polychromasia SLIGHT = 2-3 cells (100X) (0-2/hpf); Reflex for Review?? NO; Target Cells MODERATE= 6-15 cells (100X) (0-1/hpf); Vacuoles MODERATE
[2018-07-05] MEDS: Lidocaine 5% Patch TD SCH (11:48)
--- NOTE | 2018-07-05 14:53 | PDOC.PN ---
- Subjective Encounter Start Date: 07/05/18 Encounter Start Time: 09:20 Pt seen for followup re: lung mass. Reports pain is better. - Objective Resuscitation Status: Resuscitation Status FULL:Full Resuscitation MAR Reviewed: Yes Vital Signs & Weight: Vital Signs (12 hours) Temp Pulse Resp BP BP Pulse Ox 07/05/18 08:23 85 164/109 H 07/05/18 08:22 85 164/109 H 07/05/18 07:02 98.2 F 85 21 H 164/109 H 93 L Weight Admit Weight 158 lb 9.6 oz Weight 158 lb 9.6 oz I&O: 07/04/18 07/05/18 07/06/18 06:59 06:59 06:59 Intake Total 1185 Balance 1185 Result Diagrams: 07/05/18 10:09 07/05/18 10:09 Additional Labs: Accuchecks 07/05/18 07/05/18 07/04/18 10:55 05:02 20:39 POC Glucose 120 H 101 136 H 07/04/18 16:45 POC Glucose 126 H Labs reviewed by me Phys Exam - Physical Examination Constitutional: NAD HEENT: moist MMs Neck: supple Respiratory: clear to auscultation bilateral Cardiovascular: RRR Gastrointestinal: soft Neurological: moves all 4 limbs Psychiatric: normal affect Dx/Plan (1) Mass of right lung Code(s): R91.8 - OTHER NONSPECIFIC ABNORMAL FINDING OF LUNG FIELD Status: Acute Comment: SCC, await treatment plan (2) HTN (hypertension) Code(s): I10 - ESSENTIAL (PRIMARY) HYPERTENSION Status: Chronic Qualifiers: Hypertension type: essential hypertension Qualified Code(s): I10 - Essential (primary) hypertension Comment: Increase clonidine to 0.2 mg PO BID (3) Hypothyroidism Code(s): E03.9 - HYPOTHYROIDISM, UNSPECIFIED Status: Chronic Comment: continue Levothyroxine (4) Tobacco abuse Code(s): Z72.0 - TOBACCO USE Status: Chronic Comment: continue nicotine patch - Plan * . Replace potassium (hypokalemia) Review of Systems - Review of Systems Respiratory: negative: Cough, Shortness of Breath, SOB with Excertion, Pleuritic Pain, Wheezing Cardiovascular: negative: chest pain, palpitations, orthopnea, paroxysmal nocturnal dyspnea, edema, light headedness - Medications/Allergies Allergies/Adverse Reactions: Allergies Allergy/AdvReac Type Severity Reaction Status Date / Time aspirin AdvReac Verified 06/28/18 14:12 Medications: Current Medications Acetaminophen (Tylenol) 1,000 mg PO Q6H PRN PRN Reason: Mild Pain (1-3) Last Admin: 07/04/18 03:24 Dose: 1,000 mg Acetaminophen/Codeine Phosphate (Tylenol #3) 2 tab PO Q6H PRN PRN Reason: Pain Last Admin: 07/05/18 08:31 Dose: 2 tab Acetaminophen/Codeine Phosphate (Tylenol #3) 1 tab PO Q6H PRN PRN Reason: Pain Last Admin: 07/04/18 11:24 Dose: 1 tab Atenolol (Tenormin) 50 mg PO BID [facility] Last Admin: 07/05/18 08:23 Dose: 50 mg Benzonatate (Tessalon) 100 mg PO Q6H PRN PRN Reason: Cough Clonidine (Catapres) 0.1 mg PO Q4H PRN PRN Reason: SBP Greater Than 180 Clonidine (Catapres) 0.1 mg PO BID [facility] Last Admin: 07/05/18 08:23 Dose: 0.1 mg Dextrose/Water (Dextrose 50%) 25 gm SLOW IVP PRN PRN PRN Reason: Hypoglycemia Famotidine (Pepcid) 20 mg PO BID [facility] Last Admin: 07/05/18 08:23 Dose: 20 mg Fentanyl (Duragesic) 75 mcg TD Q3D [facility] Last Admin: 07/03/18 16:56 Dose: 75 mcg Glucagon (Glucagon) 1 mg IM PRN PRN PRN Reason: Hypoglycemia Lisinopril/HCTZ (Prinizide 20-25) 1 tab PO BID [facility] Last Admin: 07/05/18 08:22 Dose: 1 tab Hydralazine HCl (Apresoline) 10 mg SLOW IVP Q4H PRN PRN Reason: SBP > 180 and HR < 70 Sodium Chloride (Normal Saline 0.9%) 1,000 mls @ 75 mls/hr IV .[id number] [facility] Last Admin: 07/05/18 05:27 Dose: 1,000 mls Dextrose/Water (D5w) 1,000 mls @ 0 mls/hr IV .Q0M PRN PRN Reason: Hypoglycemia Insulin Human Lispro (Humalog) 0 units SC .MILD SLIDING SCALE PRN PRN Reason: Mild Correctional Scale Insulin Human Lispro (Humalog) 0 units SC .BEDTIME SLIDING SC PRN PRN Reason: Bedtime Correctional Scale Levothyroxine Sodium (Synthroid) 75 mcg PO 0600 [facility] Last Admin: 07/05/18 05:25 Dose: 75 mcg Lidocaine (Lidoderm 5% Patch) 1 patch TD DAILY [facility] Last Admin: 07/05/18 11:48 Dose: Not Given Metformin HCl (Glucophage) 1,000 mg PO BID-[facility] Last Admin: 07/05/18 08:23 Dose: 1,000 mg Miscellaneous Medication (Lidocaine Patch Removal) 1 each TOP 2100 [facility] Last Admin: 07/04/18 16:21 Dose: 1 each Morphine Sulfate (Morphine) 4 mg SLOW IVP Q2H PRN PRN Reason: Breakthrough Pain Last Admin: 07/01/18 05:20 Dose: 4 mg Nicotine (Nicoderm Patch) 21 mg TD 1700 [facility] Last Admin: 07/04/18 17:01 Dose: 21 mg Ondansetron HCl (Zofran Odt) 4 mg PO Q6H PRN PRN Reason: Nausea/Vomiting Ondansetron HCl (Zofran) 4 mg IVP Q6H PRN PRN Reason: Nausea/Vomiting Prednisone (Prednisone) 20 mg PO BID-[facility] Last Admin: 07/05/18 08:23 Dose: 20 mg Sodium Chloride (Flush - Normal Saline) 10 ml IVF Q12HR [facility] Last Admin: 07/05/18 08:24 Dose: 10 ml Sodium Chloride (Flush - Normal Saline) 10 ml IVF PRN PRN PRN Reason: Saline Flush Tramadol HCl (Ultram) 100 mg PO Q6HR PRN PRN Reason: for pain Last Admin: 07/03/18 00:54 Dose: 100 mg
[2018-07-05] MEDS ORDERED: cloNIDine 0.1 MG TAB PO SCH (15:00)
[2018-07-05] MEDS ORDERED: Potassium Chloride 20 MEQ TAB PO SCH (15:00)
[2018-07-05] MEDS: Nicotine 21 MG PATCH TD SCH (15:39)
[2018-07-05] MEDS: cloNIDine 0.2 MG TAB PO SCH (21:08)
[2018-07-05] MEDS: Lidocaine Patch Removal 1 EACH TOP SCH (21:14)
[2018-07-06 05:13] LABS: Anion Gap 11 mmol/L (10-20); BUN (Urea Nitrogen) 13 mg/dL (9.8-20.1); Calc. Creatinine Clearance 99 mL/min (70-130); Calcium 10.1 mg/dL (7.8-10.44); Carbon Dioxide 29 mmol/L (23-31); Chloride 96 mmol/L (98-107); Estimated GFR-MDRD Greater than 90; Glucose 92 mg/dL (83-110); Potassium 3.9 mmol/L (3.5-5.1); Sodium 132 mmol/L (136-145)
[2018-07-06 05:33] LABS: Band 2 % (5-11); Hemoglobin 11.5 g/dL (12.0-16.0); Hypochromia SLIGHT = 6-15 cells (100X) (0-5/hpf); Lymphocytes 10 % (21-51); MDiff Complete? YES; Mean Corpuscular HGB CONC 31.9 g/dL (32.0-36.0); Mean Corpuscular Hemoglobin 23.6 pg (27.0-31.0); Mean Corpuscular Volume 73.8 fL (78.0-98.0); Mean Platelet Volume 7.2 fL (7.4-10.4); Microcytosis SLIGHT = 6-15 cells (100X) (0-5/hpf); Monocytes 3 % (0-10); Neutrophil 85 % (42-75); PLT Morphology Comment Appears Increased; Platelet Count 486 thou/uL (130-400); RBC Distribution Width 14.7 % (11.5-14.5); Red Blood Cell (RBC) Count 4.87 mill/uL (4.20-5.40); Target Cells SLIGHT = 2-5 cells (100X) (0-1/hpf); White Blood Cell (WBC) Count 25.1 thou/uL (4.8-10.8)
[2018-07-06] MEDS: Levothyroxine Sodium 75 MCG TAB PO SCH (06:22)
[2018-07-06] MEDS: Atenolol 50 MG TAB PO SCH ×2 (08:24→20:54)
[2018-07-06] MEDS: cloNIDine 0.2 MG TAB PO SCH ×2 (08:25→20:53)
[2018-07-06] MEDS: Famotidine 20 MG TAB PO SCH ×2 (08:25→20:53)
[2018-07-06] MEDS: metFORMIN 500 MG TAB PO SCH ×2 (08:25→16:11)
[2018-07-06] MEDS: predniSONE 20 MG TAB PO SCH ×2 (08:25→16:11)
[2018-07-06] MEDS: Lidocaine 5% Patch TD SCH (08:27)
[2018-07-06] MEDS: Lisinopril/Hydrochlorothiazide 20/25 mg Tablet PO SCH ×2 (08:27→20:54)
[2018-07-06] MEDS: fentaNYL 75 mcg/hour Patch TD SCH (16:10)
[2018-07-06] MEDS: Acetaminophen/Codeine 30-300mg Tablet PO PRN (16:11)
[2018-07-06] MEDS: Sodium Chloride 0.9% 1,000 ML IV SCH (16:29)
[2018-07-06] MEDS: Nicotine 21 MG PATCH TD SCH (16:56)
--- NOTE | 2018-07-06 17:09 | PDOC.PN ---
- Subjective Encounter Start Date: 07/06/18 Encounter Start Time: 10:40 Pt seen for followup re: lung mass. Denies chest pain, shortness of breath, fevers or chills. - Objective Resuscitation Status: Resuscitation Status FULL:Full Resuscitation MAR Reviewed: Yes Vital Signs & Weight: Vital Signs (12 hours) Temp Pulse Resp BP BP Pulse Ox 07/06/18 08:27 90 139/93 H 07/06/18 08:25 143/90 H 07/06/18 08:24 90 139/93 H 07/06/18 07:40 98.1 F 90 18 139/93 H 94 L Weight Admit Weight 158 lb 9.6 oz Weight 158 lb 9.6 oz I&O: 07/05/18 07/06/18 07/07/18 06:59 06:59 06:59 Intake Total 1185 475 Balance 1185 475 Result Diagrams: 07/06/18 04:25 07/06/18 04:25 Additional Labs: Accuchecks 07/06/18 07/06/18 07/05/18 16:18 12:17 20:22 POC Glucose 138 H 103 132 H Labs reviewed by me Phys Exam - Physical Examination Constitutional: NAD HEENT: moist MMs xanthelasma Respiratory: clear to auscultation bilateral Cardiovascular: RRR Neurological: moves all 4 limbs Psychiatric: normal affect Dx/Plan (1) Mass of right lung Code(s): R91.8 - OTHER NONSPECIFIC ABNORMAL FINDING OF LUNG FIELD Status: Acute Comment: squamous cell cancer, palliative care following (2) HTN (hypertension) Code(s): I10 - ESSENTIAL (PRIMARY) HYPERTENSION Status: Chronic Qualifiers: Hypertension type: essential hypertension Qualified Code(s): I10 - Essential (primary) hypertension Comment: Improved after increasing clonidine to 0.2 mg PO BID yesterday (3) Hypothyroidism Code(s): E03.9 - HYPOTHYROIDISM, UNSPECIFIED Status: Chronic Comment: on Levothyroxine (4) Tobacco abuse Code(s): Z72.0 - TOBACCO USE Status: Chronic Comment: on nicotine patch - Plan * . Review of Systems - Review of Systems Respiratory: negative: Cough, Shortness of Breath, SOB with Excertion, Pleuritic Pain, Wheezing Cardiovascular: negative: chest pain, palpitations, orthopnea, paroxysmal nocturnal dyspnea, edema, light headedness - Medications/Allergies Allergies/Adverse Reactions: Allergies Allergy/AdvReac Type Severity Reaction Status Date / Time aspirin AdvReac Verified 06/28/18 14:12 Medications: Current Medications Acetaminophen (Tylenol) 1,000 mg PO Q6H PRN PRN Reason: Mild Pain (1-3) Last Admin: 07/04/18 03:24 Dose: 1,000 mg Acetaminophen/Codeine Phosphate (Tylenol #3) 2 tab PO Q6H PRN PRN Reason: Pain Last Admin: 07/06/18 16:11 Dose: 2 tab Acetaminophen/Codeine Phosphate (Tylenol #3) 1 tab PO Q6H PRN PRN Reason: Pain Last Admin: 07/04/18 11:24 Dose: 1 tab Atenolol (Tenormin) 50 mg PO BID [facility] Last Admin: 07/06/18 08:24 Dose: 50 mg Benzonatate (Tessalon) 100 mg PO Q6H PRN PRN Reason: Cough Clonidine (Catapres) 0.1 mg PO Q4H PRN PRN Reason: SBP Greater Than 180 Clonidine (Catapres) 0.2 mg PO BID [facility] Last Admin: 07/06/18 08:25 Dose: 0.2 mg Dextrose/Water (Dextrose 50%) 25 gm SLOW IVP PRN PRN PRN Reason: Hypoglycemia Famotidine (Pepcid) 20 mg PO BID [facility] Last Admin: 07/06/18 08:25 Dose: 20 mg Fentanyl (Duragesic) 75 mcg TD Q3D [facility] Last Admin: 07/06/18 16:10 Dose: 75 mcg Glucagon (Glucagon) 1 mg IM PRN PRN PRN Reason: Hypoglycemia Lisinopril/HCTZ (Prinizide 20-25) 1 tab PO BID [facility] Last Admin: 07/06/18 08:27 Dose: 1 tab Hydralazine HCl (Apresoline) 10 mg SLOW IVP Q4H PRN PRN Reason: SBP > 180 and HR < 70 Sodium Chloride (Normal Saline 0.9%) 1,000 mls @ 75 mls/hr IV .[id number] [facility] Last Admin: 07/06/18 16:29 Dose: 1,000 mls Dextrose/Water (D5w) 1,000 mls @ 0 mls/hr IV .Q0M PRN PRN Reason: Hypoglycemia Insulin Human Lispro (Humalog) 0 units SC .MILD SLIDING SCALE PRN PRN Reason: Mild Correctional Scale Insulin Human Lispro (Humalog) 0 units SC .BEDTIME SLIDING SC PRN PRN Reason: Bedtime Correctional Scale Levothyroxine Sodium (Synthroid) 75 mcg PO 0600 [facility] Last Admin: 07/06/18 06:22 Dose: 75 mcg Lidocaine (Lidoderm 5% Patch) 1 patch TD DAILY [facility] Last Admin: 07/06/18 08:27 Dose: Not Given Metformin HCl (Glucophage) 1,000 mg PO BID-[facility] Last Admin: 07/06/18 16:11 Dose: 1,000 mg Miscellaneous Medication (Lidocaine Patch Removal) 1 each TOP 2100 [facility] Last Admin: 07/05/18 21:14 Dose: Not Given Morphine Sulfate (Morphine) 4 mg SLOW IVP Q2H PRN PRN Reason: Breakthrough Pain Last Admin: 07/01/18 05:20 Dose: 4 mg Nicotine (Nicoderm Patch) 21 mg TD 1700 [facility] Last Admin: 07/06/18 16:56 Dose: Not Given Ondansetron HCl (Zofran Odt) 4 mg PO Q6H PRN PRN Reason: Nausea/Vomiting Ondansetron HCl (Zofran) 4 mg IVP Q6H PRN PRN Reason: Nausea/Vomiting Prednisone (Prednisone) 20 mg PO BID-[facility] Last Admin: 07/06/18 16:11 Dose: 20 mg Sodium Chloride (Flush - Normal Saline) 10 ml IVF Q12HR [facility] Last Admin: 07/06/18 08:26 Dose: 10 ml Sodium Chloride (Flush - Normal Saline) 10 ml IVF PRN PRN PRN Reason: Saline Flush Tramadol HCl (Ultram) 100 mg PO Q6HR PRN PRN Reason: for pain Last Admin: 07/03/18 00:54 Dose: 100 mg
[2018-07-06] MEDS ORDERED: EPINEPHrine 1 MG/10 ML Abboject SYRINGE ONE (17:24)
[2018-07-06] MEDS: Lidocaine Patch Removal 1 EACH TOP SCH (20:55)
[2018-07-07 05:15] LABS: Anion Gap 12 mmol/L (10-20); BUN (Urea Nitrogen) 14 mg/dL (9.8-20.1); Calc. Creatinine Clearance 92 mL/min (70-130); Calcium 10.4 mg/dL (7.8-10.44); Carbon Dioxide 27 mmol/L (23-31); Chloride 98 mmol/L (98-107); Estimated GFR-MDRD Greater than 90; Glucose 98 mg/dL (83-110); Potassium 4.1 mmol/L (3.5-5.1); Sodium 133 mmol/L (136-145)
[2018-07-07 05:31] LABS: Band 6 % (5-11); Eosinophils 1 % (0-10); Hemoglobin 11.2 g/dL (12.0-16.0); Lymphocytes 12 % (21-51); MDiff Complete? YES; Mean Corpuscular HGB CONC 33.1 g/dL (32.0-36.0); Mean Corpuscular Hemoglobin 24.5 pg (27.0-31.0); Mean Corpuscular Volume 74.2 fL (78.0-98.0); Monocytes 6 % (0-10); Neutrophil 75 % (42-75); PLT Morphology Comment Appears Increased; Platelet Count 407 thou/uL (130-400); RBC Distribution Width 14.7 % (11.5-14.5); Red Blood Cell (RBC) Count 4.55 mill/uL (4.20-5.40); White Blood Cell (WBC) Count 20.4 thou/uL (4.8-10.8)
[2018-07-07] MEDS: Sodium Chloride 0.9% 1,000 ML IV SCH ×2 (05:54→08:38)
[2018-07-07] MEDS: Levothyroxine Sodium 75 MCG TAB PO SCH (05:54)
[2018-07-07] MEDS: Acetaminophen/Codeine 30-300mg Tablet PO PRN (05:56)
[2018-07-07] MEDS: Lisinopril/Hydrochlorothiazide 20/25 mg Tablet PO SCH ×2 (08:18→20:16)
[2018-07-07] MEDS: metFORMIN 500 MG TAB PO SCH ×2 (08:19→17:55)
[2018-07-07] MEDS: predniSONE 20 MG TAB PO SCH ×2 (08:19→17:54)
[2018-07-07] MEDS: Atenolol 50 MG TAB PO SCH ×2 (08:20→20:16)
[2018-07-07] MEDS: Famotidine 20 MG TAB PO SCH ×2 (08:20→20:16)
[2018-07-07] MEDS: cloNIDine 0.2 MG TAB PO SCH ×2 (08:21→20:16)
[2018-07-07] MEDS: Lidocaine 5% Patch TD SCH (08:29)
--- NOTE | 2018-07-07 14:51 | PDOC.PN ---
- Subjective Encounter Start Date: 07/07/18 Encounter Start Time: 09:40 Pt seen for followup re: lung mass. Feels tired. - Objective Resuscitation Status: Resuscitation Status FULL:Full Resuscitation Vital Signs & Weight: Vital Signs (12 hours) Temp Pulse Resp BP BP BP Pulse Ox 07/07/18 08:21 139/93 H 07/07/18 08:20 81 07/07/18 08:18 81 07/07/18 08:13 97.5 F L 81 16 94/65 95 07/07/18 08:00 97.4 F L 75 20 116/82 81 L Weight Admit Weight 158 lb 9.6 oz Weight 158 lb 9.6 oz I&O: 07/06/18 07/07/18 07/08/18 06:59 06:59 06:59 Intake Total 475 1140 Balance 475 1140 Result Diagrams: 07/07/18 04:34 07/07/18 04:34 Additional Labs: Accuchecks 07/07/18 07/07/18 07/06/18 11:21 04:12 19:30 POC Glucose 132 H 108 126 H 07/06/18 16:18 POC Glucose 138 H Phys Exam - Physical Examination Constitutional: NAD HEENT: moist MMs Neck: supple Respiratory: clear to auscultation bilateral Cardiovascular: RRR Gastrointestinal: soft Neurological: moves all 4 limbs Psychiatric: normal affect Dx/Plan (1) Mass of right lung Code(s): R91.8 - OTHER NONSPECIFIC ABNORMAL FINDING OF LUNG FIELD Status: Acute Comment: squamous cell cancer, palliative care following. Pt with significant deconditioning, may need SNU. (2) HTN (hypertension) Code(s): I10 - ESSENTIAL (PRIMARY) HYPERTENSION Status: Chronic Qualifiers: Hypertension type: essential hypertension Qualified Code(s): I10 - Essential (primary) hypertension Comment: controlled (3) Hypothyroidism Code(s): E03.9 - HYPOTHYROIDISM, UNSPECIFIED Status: Chronic Comment: stable , on Levothyroxine (4) Tobacco abuse Code(s): Z72.0 - TOBACCO USE Status: Chronic Comment: continue nicotine patch - Plan * . Review of Systems - Review of Systems Constitutional: weakness Respiratory: negative: Cough, Shortness of Breath, SOB with Excertion, Pleuritic Pain, Wheezing Gastrointestinal: negative: Nausea, Vomiting, Abdominal Pain, Diarrhea, Constipation, Melena, Hematochezia - Medications/Allergies Allergies/Adverse Reactions: Allergies Allergy/AdvReac Type Severity Reaction Status Date / Time aspirin AdvReac Verified 06/28/18 14:12 Medications: Current Medications Acetaminophen (Tylenol) 1,000 mg PO Q6H PRN PRN Reason: Mild Pain (1-3) Last Admin: 07/04/18 03:24 Dose: 1,000 mg Acetaminophen/Codeine Phosphate (Tylenol #3) 2 tab PO Q6H PRN PRN Reason: Pain Last Admin: 07/07/18 05:56 Dose: 2 tab Acetaminophen/Codeine Phosphate (Tylenol #3) 1 tab PO Q6H PRN PRN Reason: Pain Last Admin: 07/04/18 11:24 Dose: 1 tab Atenolol (Tenormin) 50 mg PO BID [facility] Last Admin: 07/07/18 08:20 Dose: 50 mg Benzonatate (Tessalon) 100 mg PO Q6H PRN PRN Reason: Cough Clonidine (Catapres) 0.1 mg PO Q4H PRN PRN Reason: SBP Greater Than 180 Clonidine (Catapres) 0.2 mg PO BID [facility] Last Admin: 07/07/18 08:21 Dose: 0.2 mg Dextrose/Water (Dextrose 50%) 25 gm SLOW IVP PRN PRN PRN Reason: Hypoglycemia Famotidine (Pepcid) 20 mg PO BID [facility] Last Admin: 07/07/18 08:20 Dose: 20 mg Fentanyl (Duragesic) 75 mcg TD Q3D [facility] Last Admin: 07/06/18 16:10 Dose: 75 mcg Glucagon (Glucagon) 1 mg IM PRN PRN PRN Reason: Hypoglycemia Lisinopril/HCTZ (Prinizide 20-25) 1 tab PO BID [facility] Last Admin: 07/07/18 08:18 Dose: 1 tab Hydralazine HCl (Apresoline) 10 mg SLOW IVP Q4H PRN PRN Reason: SBP > 180 and HR < 70 Sodium Chloride (Normal Saline 0.9%) 1,000 mls @ 75 mls/hr IV .[id number] [facility] Last Admin: 07/07/18 08:38 Dose: 1,000 mls Dextrose/Water (D5w) 1,000 mls @ 0 mls/hr IV .Q0M PRN PRN Reason: Hypoglycemia Insulin Human Lispro (Humalog) 0 units SC .MILD SLIDING SCALE PRN PRN Reason: Mild Correctional Scale Insulin Human Lispro (Humalog) 0 units SC .BEDTIME SLIDING SC PRN PRN Reason: Bedtime Correctional Scale Levothyroxine Sodium (Synthroid) 75 mcg PO 0600 [facility] Last Admin: 07/07/18 05:54 Dose: 75 mcg Lidocaine (Lidoderm 5% Patch) 1 patch TD DAILY [facility] Last Admin: 07/07/18 08:29 Dose: 1 patch [facility] Last Admin: 07/07/18 08:19 Dose: 1,000 mg Miscellaneous Medication (Lidocaine Patch Removal) 1 each TOP 2100 [facility] Last Admin: 07/06/18 20:55 Dose: Not Given Morphine Sulfate (Morphine) 4 mg SLOW IVP Q2H PRN PRN Reason: Breakthrough Pain Last Admin: 07/01/18 05:20 Dose: 4 mg Nicotine (Nicoderm Patch) 21 mg TD 1700 [facility] Last Admin: 07/06/18 16:56 Dose: Not Given Ondansetron HCl (Zofran Odt) 4 mg PO Q6H PRN PRN Reason: Nausea/Vomiting Ondansetron HCl (Zofran) 4 mg IVP Q6H PRN PRN Reason: Nausea/Vomiting Prednisone (Prednisone) 20 mg PO BID[facility] Last Admin: 07/07/18 08:19 Dose: 20 mg Sodium Chloride (Flush - Normal Saline) 10 ml IVF Q12HR [facility] Last Admin: 07/07/18 08:21 Dose: 10 ml Sodium Chloride (Flush - Normal Saline) 10 ml IVF PRN PRN PRN Reason: Saline Flush Tramadol HCl (Ultram) 100 mg PO Q6HR PRN PRN Reason: for pain Last Admin: 07/03/18 00:54 Dose: 100 mg
[2018-07-07] MEDS: Nicotine 21 MG PATCH TD SCH (17:54)
[2018-07-07] MEDS: Morphine 4 MG/ML VIAL SLOW IVP PRN (17:57)
[2018-07-07] MEDS: Lidocaine Patch Removal 1 EACH TOP SCH (20:16)
[2018-07-08] MEDS: Levothyroxine Sodium 75 MCG TAB PO SCH (05:57)
[2018-07-08] MEDS: Sodium Chloride 0.9% 1,000 ML IV SCH ×2 (05:57→08:06)
[2018-07-08] MEDS: Morphine 4 MG/ML VIAL SLOW IVP PRN (07:57)
[2018-07-08] MEDS: Lidocaine 5% Patch TD SCH (07:57)
[2018-07-08] MEDS: Lisinopril/Hydrochlorothiazide 20/25 mg Tablet PO SCH ×2 (07:57→21:45)
[2018-07-08] MEDS: cloNIDine 0.2 MG TAB PO SCH ×2 (07:58→21:45)
[2018-07-08] MEDS: metFORMIN 500 MG TAB PO SCH ×3 (07:58→17:15)
[2018-07-08] MEDS: predniSONE 20 MG TAB PO SCH ×3 (07:58→17:15)
[2018-07-08] MEDS: Famotidine 20 MG TAB PO SCH ×2 (07:58→21:45)
[2018-07-08] MEDS: Atenolol 50 MG TAB PO SCH ×2 (13:01→21:46)
[2018-07-08] MEDS: Nicotine 21 MG PATCH TD SCH (15:21)
--- NOTE | 2018-07-08 16:16 | CT ---
CT ABDOMEN AND PELVIS WITH IV CONTRAST: 07/08/18 HISTORY: Non-small cell lung cancer. Evaluate for staging. Patient complains of flank pain for a couple of day s. FINDINGS: There are scattered hypodense lesions seen throughout each lobe of the liver. Largest lesion in the r ight hepatic lobe measures 1.8 cm. There is a more dominant lesion seen within the medial segment of the left hepatic lobe near the dome of the liver measuring 4.9 cm x 4.1 cm with enhancing rim. There is also heterogeneity of the adjacent liver parenchyma which could be related to perfusion abnormalit y due to the large lesion. Given patient's history of lung cancer, findings are most likely attribut able to hepatic metastatic lesions throughout the liver. However, the larger lesion in the left hepat ic lobe does have a peripherally enhancing lesion and in the absence of clinical signs or symptoms of infection, this also likely represents a metastatic lesion. There is a tiny right pleural effusion w ith small pericardial effusion identified. There is bibasilar atelectasis. A discrete pulmonary nodul e in either lung base is not appreciated. There is a left adrenal mass measuring 3.1 cm. There are fluid attenuation exophytic hypodense lesions in each kidney measuring 3.3 cm mid portion r ight kidney and 1.9 cm inferior pole left kidney compatible with cysts. The spleen and pancreas have a normal CT appearance. There is mild thickening of the right adrenal gl and without definite mass appreciated. Dense vascular calcifications are seen in the abdominal aorta and involving the iliac arteries. The urinary bladder is mostly decompressed. Calcified uterine fibroid is present within the uterus wi th additional lobulated areas involving the uterus also likely related to additional uterine fibroid . There is colonic diverticulosis. There is moderate amount of retained stool and fecal material as well as gas seen throughout the colo n. There are lytic destructive lesions involving the L1 vertebral body with largest lesion seen in the r ight aspect of the vertebral body and involving the right pedicle and appears to extend partially int o the right neural foramen as well as into the right lateral aspect of the central spinal canal. Soft tissue density also extends laterally on the right. This lesion measures 3.3 cm x 2.8 cm. Additional smaller lesion is seen in the left lateral aspect of the L1 vertebral body. There is also lytic dest ructive lesion involving the L5 vertebral body with destructive changes present. This lesion measures approximately 3.5 cm in the right lateral aspect of the vertebral body and involving the pedicle. No definite additional osseous metastatic lesions are appreciated. Degenerative changes are seen thro ughout the lumbar spine. IMPRESSION: 1. Multiple hypodense lesions scattered throughout the liver with largest lesion seen in the me dial segment of the left hepatic lobe near the dome of the liver measuring 4.9 cm. In the absence of clinical signs or symptoms of infection, these findings are likely attributable to metastatic disease . 2. Left adrenal mass measuring 3.1 cm likely related to metastatic lesion. 3. Osseous metastatic disease involving the L1 and L5 vertebral bodies with destructive lesions present in the right aspect of these vertebral bodies. Soft tissue mass component involving the L1 ve rtebral body on the right does extend into the right neural foramen and right lateral aspect of the c entral canal. 4. Small pericardial effusion with tiny right pleural effusion. 5. Additional findings are as described above. 6. Nonspecific mild increased density in the gallbladder lumen. This could be related to sludge within the gallbladder lumen. POS: [facility]
[2018-07-08] MEDS ORDERED: ISOVUE-370 76%-LOCM 1 ML ONE (16:19)
[2018-07-08] MEDS ORDERED: Cyclobenzaprine 10 MG TAB PO PRN (16:29)
--- NOTE | 2018-07-08 16:32 | PDOC.PN ---
- Subjective Encounter Start Date: 07/08/18 Encounter Start Time: 16:30 Ms. Andre was seen today in follow-up of newly diagnosed lung cancer. She complains of pain on the lower left back, which is about a 10/10 when she gets up to move. - Objective Resuscitation Status: Resuscitation Status FULL:Full Resuscitation MAR Reviewed: Yes Vital Signs & Weight: Vital Signs (12 hours) Temp Pulse Resp BP Pulse Ox 07/08/18 07:43 98.5 F 78 18 144/92 H 94 L Weight Admit Weight 158 lb 9.6 oz Weight 158 lb 9.6 oz I&O: 07/07/18 07/08/18 07/09/18 06:59 06:59 06:59 Intake Total 1140 1400 Balance 1140 1400 Result Diagrams: 07/07/18 04:34 07/07/18 04:34 Additional Labs: Accuchecks 07/08/18 07/08/18 07/07/18 11:02 03:59 19:33 POC Glucose 112 H 118 H 127 H 07/07/18 16:17 POC Glucose 121 H Phys Exam - Physical Examination HEENT: PERRLA, sclera anicteric Respiratory: no wheezing, no rales, no rhonchi, clear to auscultation bilateral Cardiovascular: RRR, no significant murmur, no rub Gastrointestinal: soft, non-tender, no distention, positive bowel sounds Musculoskeletal: no edema Neurological: non-focal Deviation from normal: flat affect Dx/Plan (1) Squamous cell carcinoma of lung, stage IV Code(s): C34.90 - MALIGNANT NEOPLASM OF UNSP PART OF UNSP BRONCHUS OR LUNG Status: Acute (2) Diabetes mellitus type II, controlled Code(s): E11.9 - TYPE 2 DIABETES MELLITUS WITHOUT COMPLICATIONS Status: Chronic Comment: ISS, accmartha, ADA (3) HTN (hypertension) Code(s): I10 - ESSENTIAL (PRIMARY) HYPERTENSION Status: Chronic Qualifiers: Hypertension type: essential hypertension Qualified Code(s): I10 - Essential (primary) hypertension Comment: controlled - Plan * Squamous Cell Lung CA- stage 4- she appears overwhelmed by her diagnosis. She can not tell me how she plans to proceed at the juncture. I will speak with her or son which she has given permission to do, with regards to discharge plans and treatment options, ect. * Left sided pain- probably as a result of glenys metastatic disease- will continue the Fentanyl patch, and will add Flexeril * HTN- blood pressure is controlled * DM- blood glucose is stable * Await CT scan results * Likely home tomorrow.
[2018-07-08] MEDS: Lidocaine Patch Removal 1 EACH TOP SCH (21:47)
[2018-07-08] MEDS: Acetaminophen/Codeine 30-300mg Tablet PO PRN (21:49)
[2018-07-09] MEDS: Sodium Chloride 0.9% 1,000 ML IV SCH (01:35)
[2018-07-09] MEDS: Levothyroxine Sodium 75 MCG TAB PO SCH (05:51)
[2018-07-09] MEDS: Acetaminophen/Codeine 30-300mg Tablet PO PRN (05:51)
[2018-07-09] MEDS: metFORMIN 500 MG TAB PO SCH ×2 (08:53→17:14)
[2018-07-09] MEDS: predniSONE 20 MG TAB PO SCH ×2 (08:53→17:14)
[2018-07-09] MEDS: cloNIDine 0.2 MG TAB PO SCH (08:54)
[2018-07-09] MEDS: Lisinopril/Hydrochlorothiazide 20/25 mg Tablet PO SCH (08:54)
[2018-07-09] MEDS: Atenolol 50 MG TAB PO SCH (08:54)
[2018-07-09] MEDS: Famotidine 20 MG TAB PO SCH (08:55)
[2018-07-09] MEDS: Lidocaine 5% Patch TD SCH (08:55)
[2018-07-09 09:44] VITALS: BP 140/93; TEMP 98.7
--- NOTE | 2018-07-09 14:56 | PDOC.PN ---
- Subjective Encounter Start Date: 07/09/18 Encounter Start Time: 13:05 Ms. Andre was seen today in follow-up of Squamous Cell cancer of the Lung Stage 4. She has a very flat affect, and barely answers questions. She appears unable to voice her concerns. I was not able to adequately assess her pain level - Objective Resuscitation Status: Resuscitation Status FULL:Full Resuscitation MAR Reviewed: Yes Vital Signs & Weight: Vital Signs (12 hours) Temp Pulse Resp BP Pulse Ox 07/09/18 08:00 98.7 F 87 16 140/93 H 93 L Weight Admit Weight 158 lb 9.6 oz Weight 158 lb 9.6 oz I&O: 07/08/18 07/09/18 07/10/18 06:59 06:59 06:59 Intake Total 1400 2675 Balance 1400 2675 Result Diagrams: 07/07/18 04:34 07/07/18 04:34 Additional Labs: Accuchecks 07/09/18 07/09/18 07/08/18 11:32 04:08 19:44 POC Glucose 111 H 101 99 07/08/18 16:03 POC Glucose 123 H Phys Exam - Physical Examination HEENT: PERRLA Respiratory: no wheezing, no rales, no rhonchi, clear to auscultation bilateral Cardiovascular: RRR, no significant murmur, no rub Gastrointestinal: soft, non-tender, no distention, positive bowel sounds Musculoskeletal: no edema Dx/Plan (1) Squamous cell carcinoma of lung, stage IV Code(s): C34.90 - MALIGNANT NEOPLASM OF UNSP PART OF UNSP BRONCHUS OR LUNG Status: Acute (2) Diabetes mellitus type II, controlled Code(s): E11.9 - TYPE 2 DIABETES MELLITUS WITHOUT COMPLICATIONS Status: Chronic Comment: ISS, accmartha, ADA (3) HTN (hypertension) Code(s): I10 - ESSENTIAL (PRIMARY) HYPERTENSION Status: Chronic Qualifiers: Hypertension type: essential hypertension Qualified Code(s): I10 - Essential (primary) hypertension Comment: controlled - Plan * Squamous Cell cancer of the Lung- CT scan results were noted. The tumor is widely metastatic. * HTN- blood pressure is controlled * DM- blood glucose is controlled. * Plan to meet with the patient's son later this afternoon, and discuss discharge plans
[2018-07-09] MEDS: fentaNYL 75 mcg/hour Patch TD SCH (17:08)
[2018-07-09] MEDS: Nicotine 21 MG PATCH TD SCH (17:14)
--- NOTE | 2018-07-10 03:54 | DIS ---
DATE OF ADMISSION: 06/28/2018 DATE OF DISCHARGE: 07/09/2018 PRIMARY CARE PHYSICIAN: Luna Lorenz M.D. DISCHARGE DISPOSITION: Home. PRIMARY DISCHARGE DIAGNOSES: 1. Squamous cell carcinoma of the lung, stage 4. 2. Hypertension. 3. Hypothyroidism. 4. Diabetes mellitus, type 2. 5. Reactive depression. DISCHARGE MEDICATIONS: Include fentanyl patch 75 mcg every 3 days, Tylenol #3 one tablet q.4 hours a s needed for pain, Zoloft 50 mg daily, MiraLax 17 grams daily, Lidoderm patch 1 patch daily, Flexeril 5 mg t.i.d. as needed, tramadol 100 mg q.6 hours as needed, prednisone 20 mg twice a day, metformin 1000 mg twice daily, lisinopril/hydrochlorothiazide 20/25 one tablet twice a day, levothyroxine 75 mc g daily, atenolol 50 mg twice a day. PROCEDURES DONE DURING ADMISSION: The patient had a CT scan of the chest. A CT angiogram showing a right lung malignancy measuring 6.5 x 4.5 x 5.7 cm. It encases the right upper lobe as well as the p ulmonary arteries with some extension into the posterior aspect of the superior vena cava. The patie nt had a bronchoscopy with biopsy, the pathology results came back as a poorly differentiated non-sma ll cell carcinoma consistent with squamous cell carcinoma. The patient had an MRI of the brain which was negative for any metastatic lesions. The patient had a CT scan of the abdomen and pelvis showin g multiple hypodense lesions scattered throughout the liver, the largest lesion was in the medial seg ment of the left hepatic lobe near the dome measuring 4.9 cm. There was a 3.1 cm left adrenal mass a nd several osseous lesions in the lumbar spine, a small pericardial effusion and small right pleural effusion. CODE STATUS AT THE TIME OF DISCHARGE: FULL CODE. ALLERGIES: ASPIRIN. HOSPITAL COURSE: Ms. Andre is a pleasant 72-year-old female who presented to the emergency room co mplaining of severe back pain. She was evaluated in the ER and a CT angiogram of the chest was obtai lili demonstrating a large right hilar or apical lung mass. She was admitted for further workup of th is. It was also noted that there was metastatic disease in the thoracic and lumbar spine. This like ly could explain her pain. She was seen by Pulmonology and underwent bronchoscopy and biopsy. The p athology of which was consistent with squamous cell carcinoma. She was staged at a stage IV. She wa s seen by Oncology and treatment options were discussed. The patient, however, only has Medicare par t A, which will complicate her cancer treatment in the outpatient setting. Also, the patient appeare d to be had a severe reactive depression as a result of the diagnosis. I discussed this with the son over the telephone. He helps the patient with medical decisions along with the patient's . I explained to him prior to discharge that they will need to work closely with the patient to optimiz e her care in the outpatient setting. She would likely need to pediatric genetic counselor with her primary care ikei castro, preferably with the family member present to help decide on whether or not to pursue aggressive t herapy versus palliative care and hospice only, which would be a viable option given the advanced sta ge of her lung cancer. I spoke with the patient's son, Osmany, over the telephone regarding this an d he voiced understanding. I also explained the new medications including the fentanyl patch and the antidepressants, which will be Zoloft. The need for an aggressive bowel prep on the opiate pain med ications. The patient therefore will be subsequently discharged home today hopefully to pursue a [facility] outpatient followup.
--- NOTE | 2018-07-12 16:58 | EKG ---
Test Reason : Blood Pressure : / mmHG Vent. Rate : 074 BPM Atrial Rate : 074 BPM P-R Int : 144 ms QRS Dur : 072 ms QT Int : 394 ms P-R-T Axes : 041 -25 -20 degrees QTc Int : 437 ms Normal sinus rhythm Inferior infarct , age undetermined Abnormal ECG Confirmed by PRABHJOT LACEY, KIEL ([id number]), film or videotape editor DIANA SMITH ([id number]) on 07/12/2018 4:58:01 PM Referred By: Confirmed By:KIEL RICK MD
== END 2018-07-09 18:15 | disposition home or self-care (01) | DRG 181 ==
LOC: ERS 08:52 → T4-A 13:54
PROVIDERS: ADMIT Family Medicine; ATTEND Family Medicine
PROC: 0BD48ZX Extraction of Right Upper Lobe Bronchus, Via Natural or Artificial Opening Endoscopic, Diagnostic (ICD-10-PCS; principal; 2018-06-30)
DX: C34.11 Malignant neoplasm of upper lobe, right bronchus or lung (principal); C79.51 Secondary malignant neoplasm of bone; C79.89 Secondary malignant neoplasm of other specified sites; C78.7 Secondary malignant neoplasm of liver and intrahepatic bile duct; C79.72 Secondary malignant neoplasm of left adrenal gland; F17.210 Nicotine dependence, cigarettes, uncomplicated; E11.9 Type 2 diabetes mellitus without complications; Z79.84 Long term (current) use of oral hypoglycemic drugs; E03.9 Hypothyroidism, unspecified; I10 Essential (primary) hypertension; F32.89 Other specified depressive episodes; Z51.5 Encounter for palliative care
CPT/HCPCS: 36415; 36416; 70553; 71045; 71275; 72072; 74177; 80048; 80053; 81003; 81015; 82553; 83690; 83880; 84484; 85007; 85025; 85027; 85379; 88112; 88305; 88341; 88342; 93005; 94640; 96361; 96374; 99152; 99153; J0171; J2001; J2250; J2270; J3010; J7506

== ENCOUNTER 2018-07-14 18:56 | Inpatient (IN) | payer MEDICARE ==
[~2018-07-14 18:56] MED LIST: ISOVUE-370 76%-LOCM 1 ML ONE
[2018-07-14 19:40] LABS: Hemoglobin 9.9 g/dL (12.0-16.0); Mean Corpuscular HGB CONC 30.7 g/dL (32.0-36.0); Mean Corpuscular Hemoglobin 24.5 pg (27.0-31.0); Mean Corpuscular Volume 79.9 fL (78.0-98.0); Mean Platelet Volume 8.5 fL (7.4-10.4); Platelet Count 158 thou/uL (130-400); RBC Distribution Width 15.6 % (11.5-14.5); Red Blood Cell (RBC) Count 4.04 mill/uL (4.20-5.40); White Blood Cell (WBC) Count 27.3 thou/uL (4.8-10.8)
--- NOTE | 2018-07-14 19:57 | RAD ---
AP VIEW CHEST: 07/14/18 HISTORY: Dyspnea. Shortness of breath. AP view chest obtained on 07/14/18. Comparison made to previous exam from 06/28/18. AP view chest demonstrates again extensive right suprahilar area of mass-like density unchanged since the previous exam from 06/28/18. On the CTA on 06/28/18, represents a large right suprahilar mass. No evidence of obvious significant interval changes noted. No evidence of effusions seen. IMPRESSION: Persistent large right paratracheal and upper hilar soft tissue mass. No evidence of significant inte rval change is seen since the previous comparison chest radiograph. POS: [facility]
[2018-07-14] MEDS ORDERED: Succinylcholine Chloride 20 MG/ML 10 ml SYRINGE FS ONE (19:58)
[2018-07-14 20:00] LABS: ALT (SGPT) 13 U/L (8-55); AST (SGOT) 17 U/L (5-34); Albumin 2.3 g/dL (3.4-4.8); Alkaline Phosphatase 99 U/L (40-150); BUN (Urea Nitrogen) 30 mg/dL (9.8-20.1); Bilirubin, Total 0.6 mg/dL (0.2-1.2); Calc. Creatinine Clearance 0 mL/min (70-130); Calcium 11.6 mg/dL (7.8-10.44); Chloride 111 mmol/L (98-107); Estimated GFR-MDRD 43; Globulin 2.4 g/dL (2.4-3.5); Glucose 253 mg/dL (83-110); Potassium 4.1 mmol/L (3.5-5.1); Protein, Total 4.7 g/dL (6.0-8.3); Sodium 143 mmol/L (136-145)
[2018-07-14 20:04] LABS: CKMB 2.3 ng/mL (0-6.6); Troponin I 0.014 ng/mL (< 0.028)
[2018-07-14 20:05] LABS: Carbon Dioxide Less than 8 mmol/L (23-31)
[2018-07-14] MEDS ORDERED: EPINEPHrine 1 MG/ML AMP ONE (20:05)
[2018-07-14] MEDS ORDERED: EPINEPHrine 1 MG/10 ML Abboject SYRINGE ONE (20:06)
[2018-07-14 20:14] LABS: Anisocytosis SLIGHT = 6-15 cells (100X) (0-5/hpf); Band 18 % (5-11); Eosinophils 1 % (0-10); Hypochromia SLIGHT = 6-15 cells (100X) (0-5/hpf); Lymphocytes 16 % (21-51); MDiff Complete? YES; Metamyelocyte 4 % (0-0); Monocytes 2 % (0-10); Myelocyte 2 % (0-0); Neutrophil 57 % (42-75); Nucleated RBC 2 % (0); PLT Morphology Comment Appears Adequate; Polychromasia SLIGHT = 2-3 cells (100X) (0-2/hpf); Schistocytes SLIGHT = 2-5 cells (100X) (0-1/hpf); Target Cells SLIGHT = 2-5 cells (100X) (0-1/hpf); Tear Drops SLIGHT = 2-5 cells (100X) (0-1/hpf); Vacuoles SLIGHT
[2018-07-14] MEDS ORDERED: fentaNYL Citrate/PF 2,000 MCG in Sodium Chloride 0.9% 60 ML IV SCH ×2 (20:34→23:00)
[2018-07-14 20:40] LABS: Actual Bicarbonate (HCO3a) 11.2 mEq/L (22-28); Analyzer IN Cardio ER; Base Excess (BEa) -23.9 mEq/L (-2.0 to +3.0); Calcium, Ionized 1.45 mmol/L (1.12-1.30); Carboxyhemoglobin (COHb) 0.9 gm% (0.0-3.0); Hemoglobin (Hb) 11.3 g/dL (12.0-16.0)
--- NOTE | 2018-07-14 20:46 | RAD ---
AP VIEW CHEST 07/14/18 HISTORY: Loss of consciousness. Confirm placement of line. AP view chest demonstrates placement of a nasogastric tube, distal tip at the gastroesophageal juncti on. There has also been placement of an endotracheal tube distal tip above the darshan at the level of the sternoclavicular junction. Again, right suprahilar and paratracheal lung mass is seen. The lungs are well aerated otherwise. IMPRESSION: Placement of NG and endotracheal tubes as described above. POS: [facility]
[2018-07-14] MEDS ORDERED: Sodium Bicarb 50 MEQ/50 ML Abboject 8.4% SYRINGE ONE (21:00)
[2018-07-14] MEDS ORDERED: Norepinephrine 8 MG/0.9% NS 250 ML ONE (21:00)
[2018-07-14 21:09] LABS: pH, Arterial 6.78 (7.35-7.45)
[2018-07-14 21:10] LABS: CO2 Tension 76.9 mmHg (35.0-45.0); O2 Tension (PaO2) 26.2 mmHg (> 70.0); Puncture Site FEMORAL
[2018-07-14 21:11] LABS: ALV-art Gradient 590.675 (0-20)
[2018-07-14 21:24] LABS: Actual Bicarbonate (HCO3a) 6.1 mEq/L (22-28); Analyzer IN Cardio ER; Base Excess (BEa) -22.8 mEq/L (-2.0 to +3.0); Calcium, Ionized 1.38 mmol/L (1.12-1.30); Carboxyhemoglobin (COHb) 0.3 gm% (0.0-3.0); Hemoglobin (Hb) 10.3 g/dL (12.0-16.0); Potassium - ABG Lab 4.29 mmol/L (3.70-5.30)
[2018-07-14 21:34] LABS: CO2 Tension 22.7 mmHg (35.0-45.0); pH, Arterial 7.05 (7.35-7.45)
[2018-07-14 21:35] LABS: ALV-art Gradient 59.725 (0-20); O2 Tension (PaO2) 624.9 mmHg (> 70.0); Puncture Site ALINE
[2018-07-14] MEDS ORDERED: Piperacillin/Tazobactam 3.375 GM VIAL ONE (21:46)
[2018-07-14] MEDS ORDERED: Ventilator Sedation Protocol 1 EACH FS SCH (22:56)
[2018-07-14] MEDS ORDERED: Heparin 10,000 UNITS/ 10 ML VIAL SLOW IVP SCH (22:56)
[2018-07-14] MEDS ORDERED: Heparin 25,000 units/D5W 500 ML IVPB SCH (22:56)
[2018-07-14] MEDS ORDERED: Dextrose 5% in Water 1,000 ML IV PRN (22:56)
[2018-07-14] MEDS ORDERED: Insulin Regular 300 UNITS/3 ML VIAL SC PRN (22:56)
[2018-07-14] MEDS ORDERED: Sodium Bicarbonate 70 MEQ in Sodium Chloride 0.45% 1,000 ML IV SCH (22:56)
[2018-07-14] MEDS ORDERED: Dextrose 50% Abboject 50 ML SYRINGE SLOW IVP PRN (22:56)
[2018-07-14] MEDS ORDERED: CCU Electrolyte Replacement 1 EACH FS SCH (22:56)
[2018-07-14] MEDS ORDERED: CCU Electrolyte Replacement 1 EACH FS ONE (22:56)
[2018-07-14] MEDS ORDERED: Norepinephrine 8 MG/0.9% NS 250 ML IVPB SCH (22:56)
[2018-07-14 22:57] LABS: Actual Bicarbonate (HCO3a) 8.6 mEq/L (22-28); Base Excess (BEa) -18.2 mEq/L (-2.0 to +3.0); Calcium, Ionized 1.35 mmol/L (1.12-1.30); Carboxyhemoglobin (COHb) 1.1 gm% (0.0-3.0); Hemoglobin (Hb) 10.6 g/dL (12.0-16.0); O2 Tension (PaO2) 287.2 mmHg (> 70.0)
--- NOTE | 2018-07-14 22:58 | CT ---
CTA CHEST 07/14/18 HISTORY: Dyspnea. Contrast enhanced CTA of the chest is performed. 2D and 3D reconstructed images performed. Images demonstrate endotracheal tube to be in place. There is a nasogastric tube distal tip at the ga stroesophageal junction having not passed into the stomach. Again, right paratracheal and superior hi lar mass is seen enveloping the right upper lobe pulmonary artery. Overall size and shape is not sign ificantly different than previous CT from 06/28/18. No evidence of pulmonary emboli seen. No evidence of pleural effusion seen. A tiny pericardial effusion is present. Marked enlargement of the adrenal glands seen. Areas of heterogeneous density seen in numerous vertebrae compatible with metastatic dis ease in the thoracic spine. Also noted is some heterogeneity possibly in the liver which may represent hepatic metastatic disease . However, the phase of this exam is not timed to optimize the hepatic parenchymal characterization. IMPRESSION: Large right paratracheal and hilar mass. POS: [facility]
[2018-07-14] MEDS ORDERED: Lorazepam 2 MG/ML VIAL SLOW IVP PRN (23:00)
[2018-07-14] MEDS ORDERED: Propofol 1,000 MG/100 ML VIAL IV PRN (23:00)
[2018-07-14] MEDS ORDERED: Morphine 2 MG/ML SYRINGE SLOW IVP PRN (23:00)
[2018-07-14] MEDS ORDERED: Fentanyl BOLUS 250 ML IVPB PRN (23:00)
[2018-07-14] MEDS ORDERED: DISCONTINUE PREVIOUS NARCOTIC PAIN MEDICATIONS AND BENZODIAZEPINES FS SCH (23:00)
[2018-07-14] MEDS ORDERED: Propofol BOLUS 1,000 MG/100 ML VIAL IV PRN (23:00)
[2018-07-14] MEDS ORDERED: Potassium Phosphate 15 MMOL in Sodium Chloride 0.9% 250 ML 250 ML IV PRN (23:01)
[2018-07-14] MEDS ORDERED: Magnesium Oxide 400 MG TAB PO PRN ×2 (23:01)
[2018-07-14] MEDS ORDERED: Potassium Chloride 40 MEQ in Sodium Chloride 0.9% 250 ML 250 ML IVPB PRN (23:01)
[2018-07-14] MEDS ORDERED: CCU ELECTROLYTE REPLACEMENT PROTOCOL FS PRN (23:01)
[2018-07-14] MEDS ORDERED: Potassium Chloride 40 MEQ in Premix Bag 1 BAG IVPB PRN (23:01)
[2018-07-14] MEDS ORDERED: Potassium Chloride 20 MEQ TAB PO PRN (23:01)
[2018-07-14] MEDS ORDERED: Magnesium 2 GM/NS 0.9% 100 ML 2 GM in Premix Bag 1 BAG IVPB PRN (23:01)
[2018-07-14] MEDS ORDERED: Potassium Phosphate 12 MMOL in Sodium Chloride 0.9% 250 ML 250 ML IV PRN (23:01)
[2018-07-14] MEDS ORDERED: Potassium Phosphate 9 MMOL in Sodium Chloride 0.9% 100 ML IVPB PRN (23:01)
[2018-07-14 23:02] LABS: Puncture Site ALINE; pH, Arterial 7.17 (7.35-7.45)
[2018-07-14 23:32] LABS: Hemoglobin 10.7 g/dL (12.0-16.0); Platelet Count 133 thou/uL (130-400)
[2018-07-14 23:35] LABS: PTT 120.9 SEC (22.9-36.1)
[2018-07-14] MEDS ORDERED: Piperacillin/Tazobactam 3.375 GM in Sodium Chloride 0.9% 100 ML IVPB SCH (23:59)
[2018-07-15] MEDS ORDERED: Vasopressin 40 UNIT, Admixture Fee 1 EACH in Sodium Chloride 0.9% 100 ML IV SCH (01:00)
--- NOTE | 2018-07-15 04:32 | CON ---
DATE OF CONSULTATION: 07/14/2018 This encompasses 70 minutes of critical care time does not include time spent, putting an arterial li ne and central line. See separate dictated notes. HISTORY OF PRESENT ILLNESS: Ms. Andre is a 72-year-old female who was diagnosed with squamous cell carcinoma of the lung, stage [address] Hudson about a week ago. In addition to a 6 cm right upper lobe mass, she has a 3 cm adrenal mass and several osseous lesions on her lumbar spine a s well as a pericardial effusion and small right pleural effusion. The patient's performance status is very poor at home. She has been unable to ambulate. She has been having pain in her left leg all day long. Because of shortness of breath and lethargy, her brought her to the emergency [facility]. Soon after arriving at the emergency room tonight, she collapsed and developed a pulseless rhythm . She was down for a total of 4 minutes according to the nursing staff. The patient received TPA IV . She did have return of spontaneous circulation. I was called by Dr. King to see the patient. I arrived within 15 minutes of being called. The patient had no detectable blood pressure by noninva sive means on my arrival and according to the nursing staff, they have not been able to get a blood p ressure on the patient since the code. Because we cannot monitor her, I elected to put an arterial l ine, see separate note. Of note, the patient was not on any type of vasopressors and had not been given any type of bicarbona te therapy prior to my arrival. After successful placement of lines and starting Levophed drip, the patient's blood pressure came up to about 150 systolic and she began moving around a little bit. I brought her and her son in the room and talked to them about the situation. They understood what did happen with the code. Anastasia kaufman also explained to me that they knew she was dying from lung cancer and after talking it over toget her they decided to put a DNR order on the chart. They are wanting to leave her on the ventilator to night to see what happened, but they fully understand that the situation is probably not going to imp rove. PAST MEDICAL HISTORY: 1. 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 2. Diabetes mellitus. 3. Hypothyroidism. 4. Hypertension. PAST SURGICAL HISTORY: Bronchoscopy. MEDICATIONS: Prior to admission, the recent discharge summary indicates that the patient was taking fentanyl patch 75 mcg every 3 days, Tylenol No. 3 as needed, Zoloft 50 mg daily, MiraLax 17 grams miguel angel ly, Lidoderm patch 1 daily, Flexeril 5 mg t.i.d. as needed, tramadol 100 mg every 6 hours as needed, prednisone 20 mg twice daily, metformin 1000 mg twice daily, lisinopril/hydrochlorothiazide 20/25 one tablet twice daily, levothyroxine 75 mcg daily, and atenolol 50 mg twice daily. SOCIAL HISTORY: She was smoking a pack of cigarettes a day history, she has been for many years. Do es not consume alcohol, does not use illicit drugs. ALLERGIES: ASPIRIN. REVIEW OF SYSTEMS: Cannot be obtained as the patient is currently on mechanical ventilation. PHYSICAL EXAMINATION: VITAL SIGNS: Pulse was running in the low 100s, blood pressure after being put on Levophed is 150/72 , O2 sat was not detectable by anywhere with blood gas where it was 100% with a pO2 of 600. GENERAL: The patient is comatose on mechanical ventilation. HEENT: Pupils are 6 mm, sluggishly reactive. Sclerae are anicteric. Oropharynx clear. NECK: No adenopathy or JVD. LUNGS: Clear anteriorly bilaterally. CARDIOVASCULAR: S1, S2, slightly tachycardic. ABDOMEN: Soft, nontender. I cannot feel her liver or spleen. EXTREMITIES: No clubbing, cyanosis, or edema. LABORATORY DATA: White blood cell count 27.3, hemoglobin 9.9, hematocrit 32.3, platelet count 158. Second blood gas showed a pH of 7.05, pCO2 of 22, pO2 of 649 that was on SIMV rate 30, tidal volume 4 50, PEEP 5, pressure support 10, FiO2 100%. Sodium 143, potassium 4.1, chloride 111, CO2 less than 8 , BUN 30, creatinine 1.4, glucose 253, calcium of 11.6. BNP 259. Troponin 0.014. Albumin 2.3. Her chest x-ray shows a right upper lobe mass. CT of her chest is pending at the time of this report. ASSESSMENT: 1. Sudden cardiopulmonary arrest. There is a multitude of reasons this lady could have coded. Coar se pulmonary embolism would be in the differential diagnosis, although I am quite surprised that her pO2 would be this fast after TPA. Sepsis is a possibility given her elevated white blood cell count and bandemia. Cardiac event is not out of the realm of possibility. 2. Severe metabolic acidosis after arrest. 3. Stage IV lung cancer. 4. Diabetes mellitus. 5. Mild hypercalcemia secondary to malignancy. RECOMMENDATIONS: 1. See conversation with her and son that I alluded to in the history of present illness. T he patient is a DNR from this point forward. 2. Empiric antibiotics. 3. Vasopressors. 4. IV fluids with bicarbonate. Sliding scale insulin as needed. 5. Follow up results of CT scan when they become available. 6. Start heparin drip once the PTT is below 80 since she received TPA earlier. 7. Arterial and venous lines were inserted. We could not obtain a blood pressure, otherwise. Fortu nately, there was minimal bleeding with insertion of these lines despite the fact she received TPA pr ior.
--- NOTE | 2018-07-15 05:09 | DS ---
SUMMARY REPORT DATE OF ADMISSION: 07/14/2018 DATE OF : 07/15/2018 FINAL DIAGNOSES: 1. Respiratory failure secondary to metastatic lung cancer. 2. Squamous cell carcinoma of the lung, stage 4. 3. Diabetes mellitus, type 2. 4. Hypertension. 5. Hypothyroidism. 6. History of depression. HOSPITAL COURSE: This was a 72-year-old female who presented to the hospital with shortness of breat h. During the course of the hospital stay in the ED, patient experienced severe shortness of breath requiring intubation. After intubation, patient went into cardiac arrest. Patient received 2 rounds of epinephrine and 2 rounds of bicarbonate and patient achieved ROSC, status post cardiac arrest. Kenzie landrum was admitted to the ICU. Pulmonary, Critical Care Physician was consulted. Patient was being managed in the ICU on antibiotics, heparin protocol, and cultures were drawn in the process of patie nt being managed, patient . Time of was documented as 1:00 a.m. It was unknown if alton melendrez wants autopsy at this time.
--- NOTE | 2018-07-15 05:48 | HP ---
CHIEF COMPLAINT: Shortness of breath. HISTORY OF PRESENT ILLNESS: This is a 72-year-old -[place] Islander female with past medical history of tobacco abuse, diabetes mellitus type 2, hypothyroidism , hypertension, and newly diagnosed squamous cell lung cancer who presented with shortness of breath. The patient was having worsening shortness of breath when she came into the emergency room. The patient was then intubated due to patient's worsening shortness of breath and hypoxia. The patient was recently seen in our hospital on 06/28/2018 and the patient was evaluated for back pain. During the evaluation, the patient was found to have lung mass. Upon further investigation and the biopsy is being obtained. The patient's biopsies showed the patient has high-grade metastatic squamous cell lung cancer which has metastasized to the liver and the adrenals. Hematology/Oncology was consulted during the visit and the patient was supposed to receive chemotherapy per Oncology notes. Per note, the patient had Medicare part A; therefore, the insurance was not going to be able to cover cancer treatment in the outpatient setting. Numerous options were discussed with the patient and the patient's son over the phone prior to discharge. Of note, per medical staff signed out after the patient was intubated, patient lost her pulse and CPR was initiated. Two rounds of epinephrine and two bicarbonate were given and patient regained her pulse. ABG was then ordered, which showed the patient's pH was 6.7, pO2 was below 40, bicarbonate serum was below 8. The patient was status post cardiac arrest. REVIEW OF SYSTEMS: The patient is currently intubated and review of systems cannot be obtained. PAST MEDICAL HISTORY: 1. The patient is a tobacco abuser. 2. Newly diagnosed squamous cell lung cancer. 3. Diabetes mellitus type 2. 4. Hypothyroidism. 5. Hypertension. PAST SURGICAL HISTORY: Reviewed and are negative. CURRENT MEDICATIONS: Atenolol 50 mg p.o. b.i.d., clonidine 0.1 mg b.i.d., Flexeril 10 mg every 6 hours p.r.n., levothyroxine 75 mcg p.o. daily, lisinopril /hydrochlorothiazide 20/25 mg p.o. b.i.d., metformin 1000 p.o. b.i.d., prednisone 20 mg b.i.d., tramadol 100 mg p.o. every 6 hours p.r.n. ALLERGIES: The patient is allergic to ASPIRIN. FAMILY HISTORY: Positive for hypertension. SOCIAL HISTORY: The patient currently resides at home. The patient smokes up to a pack of cigarettes daily. The patient has been smoking more than 10 years. The patient denies any illicit drugs and any alcohol use. PHYSICAL EXAMINATION: GENERAL: The patient is lying in bed, intubated, GCS of 3T. HEENT: Normocephalic, atraumatic. Pupils are sluggish with light and patient has an ET tube in place. LUNGS: Ventilated lung sounds at the anterior lung james. CARDIOVASCULAR: The patient is tachycardic. No murmurs appreciated. ABDOMEN: Soft, nontender, nondistended. EXTREMITIES: The patient is only able to move extremities bilaterally. The patient does not follow commands. NEUROLOGIC: Neurologic exam cannot be obtained. The patient is GCS 3T. LABORATORY DATA: WBC 27.3, hemoglobin is 9.9, hematocrit is 32.3, platelets 158. A pH is 6.7, repeat pH was 7.17; pCO2 is 24.0; pO2 is 287; this is a repeat lab. Sodium is 143, potassium is 4.1, chloride is 111, bicarbonate in the serum is less than 8, anion gap cannot be calculated. BUN is 30, creatinine is 1.45, glucose is 253. BNP is 259. Troponin is 0.014. CTA of the chest showed large right paratracheal and hilar mass. ASSESSMENT AND PLAN: This is a 72-year-old female presenting with: 1. Hypoxemic respiratory failure. The patient has been intubated, currently being admitted to the ICU. Pulmonology and Critical Care metropolitan editor has been consulted. The patient is currently being managed and we will continue to follow the recommendations from the animal keeper head and critical care physician. We will continue patient on the vent. 2. Squamous lung cancer stage IV. The patient is currently not on chemo. We will consult Oncology. We will monitor the patient. We will follow up with oncologist's recommendations. 3. History of diabetes mellitus type 2. We will continue on insulin sliding scale. We will discontinue all the patient's home medications at this time. 4. History of hypertension. We will monitor the patient's blood pressure closely. 5. Hypothyroidism, currently we will hold all p.o. medications at this time. We will monitor the patient. 6. Deep venous thrombosis and gastrointestinal prophylaxis. We will do SCDs and we will do Pepcid. 7. Code status: The patient is currently DNR after first resuscitation. The patient is being admitted to the ICU. DISPOSITION: The patient's prognosis is currently poor. MTDD
--- NOTE | 2018-07-15 07:57 | ULT ---
PRELIMINARY REPORT/[facility]/EMERGENTY AFTER-HOURS PROCEDURE US Bilateral Duplex Lower Extremity Veins EXAM DATE/TIME: 07/14/2018 11:40 PM CLINICAL HISTORY: 72 years old, female; Signs and symptoms; Edema, localized; Lower extremity, bilateral; Additional in fo: Patient intubated TECHNIQUE: Real-time duplex ultrasound of the Bilateral Lower Extremities with 2-D roper scale, color Doppler dinesh w and spectral waveform analysis. Complete exam focused on the bilateral lower extremity veins. COMPARISON: No relevant prior studies available. FINDINGS: Right deep veins: Intraluminal thrombus within the right common femoral vein. Additional thrombus in the posterior tibial vein and peroneal vein. Right superficial veins: Saphenofemoral junction is patent without thrombus. Left deep veins: Extensive intraluminal thrombus extending from the common femoral vein to the bill poster installer ior tibial vein. Central venous catheter identified in the common femoral vein. Left superficial veins: Saphenofemoral junction is patent without thrombus. Soft tissues: Extensive subcutaneous edema IMPRESSION: Bilateral DVTs with extensive thrombus on the left extending from the common femoral vein through the posterior tibial vein. Moderate thrombus in the right common femoral vein and veins of the calf. CRITICAL RESULT: The study was discussed on the telephone with ESTER Martinez on 07/15/2018 12:59 AM CASING TIER. The results were understood and acknowledged. Thank you for allowing us to participate in the care of your patient. Dictated and Authenticated by: Cody Jones MD 07/15/2018 1:00 AM Central Time ([place] & [place]) FINAL REPORT BILATERAL LOWER EXTERMITY VENOUS DOPPLER ULTRASOUND: I agree with the preliminary report given by Dr. Jones of [facility]. POS: [facility]
[2018-07-15] MEDS ORDERED: Prevnar 13-Val Conj/PF 0.5 ML SYRINGE IM ONE (09:00)
[2018-07-15] MEDS ORDERED: Vancomycin HCl 1 GM in Premix Bag 1 BAG IVPB SCH (09:00)
[2018-07-15] MEDS ORDERED: Pantoprazole 40 MG VIAL IVP SCH (09:00)
--- NOTE | 2018-07-15 09:29 | OP ---
DATE OF OPERATIONS: 07/14/2018. FIRST PROCEDURE: Central line placement. PREOPERATIVE DIAGNOSIS: Poor IV access. POSTOPERATIVE DIAGNOSIS: Successful left femoral central line placement. ANESTHESIA: None. DESCRIPTION OF PROCEDURE: The procedure was performed for emergent IV access, the patient need Levop hed for hypotension. Left femoral area was scrubbed with chlorhexidine and draped sterilely. A left femoral triple lumen was placed via the modified Seldinger technique without difficulty. Three port s flushed venous blood. SECOND PROCEDURE: Arterial line placement. PREOPERATIVE DIAGNOSIS: Hypotension with inability to measure blood pressure otherwise. POSTOPERATIVE DIAGNOSIS: Successful left femoral arterial line placement. ANESTHESIA: None. DESCRIPTION OF PROCEDURE: Left femoral area had been previously cleansed with chlorhexidine and drap ed sterilely. Using modified Seldinger technique, the artery was cannulated under ultrasound guidanc e on the first attempt. A size 5 Cook's catheter was inserted into the artery without difficulty. T he blood was definitely arterial. The catheter was hooked to a transducer. The procedure was tolera edgar well.
--- NOTE | 2018-07-16 17:50 | EKG ---
Test Reason : ER SOB Blood Pressure : / mmHG Vent. Rate : 120 BPM Atrial Rate : 120 BPM P-R Int : 128 ms QRS Dur : 068 ms QT Int : 300 ms P-R-T Axes : 076 -32 096 degrees QTc Int : 424 ms Sinus tachycardia Right atrial enlargement Left axis deviation Abnormal QRS-T angle, consider primary T wave abnormality Abnormal ECG Confirmed by JUANITO SALAZAR ([id number]), social media editor DIANA SMITH ([id number]) on 07/16/2018 5:49:11 PM Referred By: Confirmed By:JUANITO SALAZAR
--- NOTE | 2018-07-20 15:22 | PQF ---
RADHIKARAYMON RANDALL [id number] CLINICAL DOCUMENTATION CLARIFICATION FORM: POST DISCHARGE Addendum to original discharge summary date: ____ Late entry note date: __ DATE: 07/20/18 ATTN: Dr Ac Please exercise your independent, professional judgment in responding to the clarification form. Clinical indicators are provided on the bottom of this form for your review Please check appropriate box(s): [ ] Pulmonary Embolism: [ ] Acute [ ] Subacute [ ] Chronic Type: [ ] Septic [ ] Traumatic: [ ] Air Embolism [ ] Fat Embolism [ ]Other Location: [ ]Saddle [ ] Bilateral [ ] Unilateral [ ] Other [ ] Pulmonary Embolism [ ] with associated Acute Cor Pulmonale [ ] without associated Acute Cor Pulmonale [ ] Iatrogenic Pulmonary Embolism due to (specify etiology) [ ] Other diagnosis [ ] Unable to determine In addition, please specify: Present on Admission (POA): [ ] Yes [ ] No [ ] Unable to determine For continuity of documentation, please document condition throughout progress notes and discharge summary. Thank You. CLINICAL INDICATORS - SIGNS / SYMPTOMS / LABS documentation of "coarse pulmonary embolism would be a differential diagnosis" in Dr Sinclair's Consult Chest pain/pleuritic pain, pleurisy SOB/hypoxia/tachypnea cardiac arrest RISK FACTORS HTN Lung Cancer dx Smoking TREATMENT: TPA Intubation heparin (This form is maintained as a part of the permanent medical record) 2014 [employer]. All Rights Reserved [email or web address] [phone] BAILEY
--- NOTE | 2018-07-29 14:41 | PQF ---
RAYMON GARRIDO GOLDY AC [id number] CLINICAL DOCUMENTATION CLARIFICATION FORM: POST DISCHARGE DATE: 07/29/18 ATTN: Dr. Ac Please exercise your independent, professional judgment in responding to the clarification form. Clinical indicators are provided on the bottom of this form for your review Please check appropriate box(s): [ ] Hypovolemic Shock [ ] Cardiogenic Shock [ ] Septic Shock [ ] Other diagnosis [ ] Unable to determine In addition, please specify: Present on Admission (POA): [ ] Yes [ ] No [ ] Unable to determine For continuity of documentation, please document condition throughout progress notes and discharge summary. Thank You. CLINICAL INDICATORS - SIGNS / SYMPTOMS / LABS Metabolic acidosis ED: Pulse RR BP TEMP 11-14 117-137 30-39 50/30 97.4 Rectal 11-15 143 25-29 MAP 30-77 WBC BANDS Hgb Hct GFR BUN CREAT Glucose 11-14 27.3 18 9.9 32.3 43 30 1.45 253 11-14 (NAYLA): Sudden cardiopulmonary arrest differential dx (pulmonary embolism although I am quite surprised that her pO2 would be this fast after TPA. Sepsis given her elevated WBC and Bandemia. Cardiac event not out of the realm of possibility.) RISK FACTORS Cardiac Arrest hypotension malignancy H&P: squamous cell lung cancer presented w/ SOB. Pt lost pulse after intubation and CPR initiated. TREATMENTS: ICU vasopressors Hemodynamic monitoring Maximizing oxygenation IV Antibiotics Levophed drip 11-14 Sodium bicarbonate -14 Zosyn IV -14 1 L IVF NS -14 VENTILATOR SUPPORT (This form is maintained as a part of the permanent medical record) 2014 [employer]. All Rights Reserved [email or web address] [phone] MTDD
--- NOTE | 2018-07-29 14:45 | PQF ---
RAYMON GARRIDOGOLDY ROCK [id number] [id number] CLINICAL DOCUMENTATION CLARIFICATION FORM: POST DISCHARGE Addendum to original discharge summary date: ____ Late entry note date: __ DATE: 07/29/18 ATTN: Dr. Ac Please exercise your independent, professional judgment in responding to the clarification form. Clinical indicators are provided on the bottom of this form for your review Please check appropriate box(es): [ ] Sepsis due to: (Pna, UTI, gangrenous gall bladder, etc.) Due to: [ ] Device (please specify) [ ] Implant [ ] Graft [ ] Infusion [ ] SIRS due to non-infectious process (please specify etiology) [ ] with organ dysfunction [ ] without organ dysfunction [ ] Severe sepsis with acute organ dysfunction of: (Examples: respiratory failure, encephalopathy, acute kidney failure, other) [ ] Septic Shock [ ] Localized infection without sepsis [ ] Other diagnosis [ ] Unable to determine In addition, please specify: Present on Admission (POA): [ ] Yes [ ] No [ ] Unable to determine For continuity of documentation, please document condition throughout progress notes and discharge summary. Thank You. CLINICAL INDICATORS - SIGNS / SYMPTOMS / LABS Metabolic acidosis hypotension ED: Pulse RR BP TEMP 11-14 117-137 30-39 50/30 97.4 Rectal 11-15 143 25-29 MAP 30-77 WBC BANDS Hgb Hct GFR BUN CREAT Glucose 14 27.3 18 9.9 32.3 43 30 1.45 253 07-14 (NAYLA): Sudden cardiopulmonary arrest differential dx (pulmonary embolism although I am quite surprised that her pO2 would be this fast after TPA. Sepsis given her elevated WBC and Bandemia. Cardiac event not out of the realm of possibility.) RISK FACTORS H&P: squamous cell lung cancer presented w/ SOB. Pt lost pulse after intubation and CPR initiated. TREATMENTS: Vasopressors IV 07-14 Levophed drip 07-14 Sodium bicarbonate 07-14 Zosyn IV 07-14 1 L IVF NS 07-14 CCU MONITORING VENTILATOR SUPPORT (This form is maintained as a part of the permanent medical record) 2014 [employer]. All Rights Reserved Camilla [email or web address] [phone] MTDD
== END 2018-07-15 01:00 | disposition expired | DRG 208 ==
LOC: ERS 18:56 → CCU 22:16
PROVIDERS: ADMIT Internal Medicine; ATTEND Internal Medicine
PROC: 0BH17EZ Insertion of Endotracheal Airway into Trachea, Via Natural or Artificial Opening (ICD-10-PCS; principal; 2018-07-14)
PROC: 5A1935Z Respiratory Ventilation, Less than 24 Consecutive Hours (ICD-10-PCS; 2018-07-14)
PROC: 04HL33Z Insertion of Infusion Device into Left Femoral Artery, Percutaneous Approach (ICD-10-PCS; 2018-07-14)
PROC: 3E03317 Introduction of Other Thrombolytic into Peripheral Vein, Percutaneous Approach (ICD-10-PCS; 2018-07-14)
PROC: 3E063XZ Introduction of Vasopressor into Central Artery, Percutaneous Approach (ICD-10-PCS; 2018-07-14)
DX: J96.01 Acute respiratory failure with hypoxia (principal); C78.7 Secondary malignant neoplasm of liver and intrahepatic bile duct; C79.70 Secondary malignant neoplasm of unspecified adrenal gland; C79.51 Secondary malignant neoplasm of bone; E87.2 Acidosis; C34.91 Malignant neoplasm of unspecified part of right bronchus or lung; I31.3 Pericardial effusion (noninflammatory); J90 Pleural effusion, not elsewhere classified; E11.9 Type 2 diabetes mellitus without complications; Z79.84 Long term (current) use of oral hypoglycemic drugs; I10 Essential (primary) hypertension; E03.9 Hypothyroidism, unspecified; F32.9 Major depressive disorder, single episode, unspecified; I46.9 Cardiac arrest, cause unspecified; Z66 Do not resuscitate; F17.210 Nicotine dependence, cigarettes, uncomplicated; E83.52 Hypercalcemia; I95.9 Hypotension, unspecified
CPT/HCPCS: 36415; 71045; 71275; 80053; 82553; 82805; 83880; 84484; 85025; 85730; 87040; 93005; 93970; 94002; 94640; 94760; J0171; J2543; J2920; J2997; J3010; J3370; J7050; J7620